=== PATIENT | female | born 1965 | race Caucasian/White ===

== ENCOUNTER → 2017-07-27 | Outpatient (CLI) | payer OTHER ==
[~2017-07-27] MED LIST: LEVO125T5 PO; LPR25 PO; MULT-506 PO
--- NOTE | 2017-07-27 15:08 | MAMMOGRAPHY REPORT ---
BILATERAL DIGITAL SCREENING MAMMOGRAM TOMOSYNTHESIS WITH CAD: 07/27/2017 CLINICAL HISTORY: Routine screening examination. TECHNIQUE: Breast tomosynthesis in addition to standard 2D mammography was performed. Current study was also evaluated with a Computer Aided Detection (CAD) system. COMPARISON: Comparison is made to exam dated: 05/17/2016 mammogram - [facility]. BREAST COMPOSITION: There are scattered areas of fibroglandular density in both breasts. FINDINGS: There is a cluster of microcalcifications in the upper outer middle one third of the right breast and another in the upper outer posterior left breast, for which additional spot magnification views are recommended. A questionable area of architectural distortion in the lateral middle one th ird of the right breast, only seen on the CC view (tomosynthesis slice 30/85), for which additional s pot compression tomosynthesis and possible ultrasound are recommended. No other suspicious mass, architectural distortion or cluster of microcalcifications is seen bilatera lly. IMPRESSION: ACR BI-RADS CATEGORY 0: INCOMPLETE EVALUATION: NEED ADDITIONAL IMAGING EVALUATION The bilateral clusters of microcalcifications and possible area of architectural distortion in the la teral right breast need additional imaging evaluation. The patient will be called to schedule an appointment. Approximately 10% of breast cancers are not detected with mammography. A negative mammographic report should not delay biopsy if a clinically suggestive mass is present. Taniya Stewart M.D. ay/:07/27/2017 12:51:50 Plan Rep: Katelyn TINAJERO(Ethan)(M), [facility] letter sent: Addl Imaging 0 BI-RADS Code: ACR BI-RADS Category 0: Incomplete Evaluation: Need Additional Imaging Evaluation
== END | disposition home or self-care (01) ==
LOC: C.MAMM 12:23
PROVIDERS: ATTEND Family Medicine
DX: Z12.31 Encounter for screening mammogram for malignant neoplasm of breast (principal); R92.0 Mammographic microcalcification found on diagnostic imaging of breast

== ENCOUNTER → 2017-08-02 | Outpatient (CLI) | payer OTHER ==
--- NOTE | 2017-08-02 14:37 | MAMMOGRAPHY REPORT ---
BILATERAL DIGITAL DIAGNOSTIC MAMMOGRAM TOMOSYNTHESIS AND TARGETED BILATERAL ULTRASOUND: 08/02/2017 CLINICAL HISTORY: 52-year-old woman called back from screening mammography for bilateral microcalcifi cations and possible architectural distortion in the lateral right breast. Patient has a family hist ory of breast cancer = grandmother. During this diagnostic appointment she also reported change in a ppearance of her left nipple, which is now more flat and retracted than previous. TECHNIQUE: Spot magnification CC and ML views of each breast; spot compression tomosynthesis right C C and MLO views were obtained. COMPARISON: Comparison is made to exams dated: 07/27/2017 mammogram, 05/17/2016 mammogram - [facility], and 07/20/2007. BREAST COMPOSITION: There are scattered areas of fibroglandular density in both breasts. FINDINGS: The spot compression tomosynthesis views of the right breast demonstrate a small area of a rchitectural distortion in the anterior superior breast, best seen on the spot compression MLO view, measuring 7 mm (MLO tomosynthesis slice 32/86). This small area of distortion is less conspicuous on the spot compression CC view, although it correlates with the location of the questionable area of d istortion seen on the field right CC projection. This could represent a small radial scar, fibrocyst ic change or carcinoma. Further characterization with ultrasound was performed. Spot magnification views of the right breast demonstrate a 2.7 mm grouping of round and punctate micr ocalcifications in the upper outer middle one third of the right breast. No associated mass, asymmet ry or architectural distortion. When comparing back to the prior available mammograms from 2016, the se microcalcifications appear increased in number and are therefore indeterminate. Definitive charac terization with a stereotactic biopsy is recommended. Spot magnification views of the left breast demonstrate 2-3 loosely grouped punctate microcalcificati ons in the superior posterior breast on the spot magnification ML view, less conspicuous on the spot magnification CC view despite repositioning and 2 additional attempts. Given the conspicuous nature of a grouping of microcalcifications on the full field CC projection from the 07/27/2017 screening ma mmogram, a short interval follow-up left diagnostic mammogram including spot magnification views is r ecommended to ensure stability in 6 months, pending benign pathology results from the right breast. Targeted ultrasound was performed in the right superior breast, upper inner and upper outer quadrants . Sonographically normal tissue is seen throughout the majority of the right superior breast. There is a small anechoic cyst versus focal duct ectasia in the 9:00 right breast, 1 cm from the nipple, m easuring 4.3 x 3.8 mm, not likely correlating with the mammographic distortion. The area of distorti on remains indeterminate and definitive characterization with a stereotactic tomosynthesis guided bio psy is recommended. Targeted ultrasound was also performed in the periareolar and subareolar left breast, in the area of possible nipple retraction described by the patient. There is a lobulated predominantly anechoic joselin ign-appearing cyst in the 12:00 periareolar/retroareolar left breast, measuring 4.3 x 4.0 x 3.2 mm. This benign cyst is not likely a cause of nipple retraction. No other suspicious solid mass is seen to cause this symptom. Therefore, continued clinical monitoring is recommended. IMPRESSION: ACR BI-RADS CATEGORY 4: SUSPICIOUS, TARGETED ULTRASOUND ACR BI-RADS CATEGORY 4: SUSPICIO US 1. Stereotactic tomosynthesis guided biopsy is recommended for a small, 7 mm focal area of platform architect ural distortion in the upper outer anterior right breast, without sonographic correlate identified. As the distortion is visualized in the spot compression MLO positioning, would ideally use this appro ach during the biopsy. 2. 2-D stereotactic guided biopsy is also recommended in the right upper outer middle one third of t he breast for a small grouping of round and punctate microcalcifications measuring 2.7 mm. 3. Pending benign pathology results from the right breast stereotactic biopsies, a short interval fo llow-up left diagnostic mammogram including spot magnification views is recommended to ensure stabili ty of a loose grouping of punctate microcalcifications in the upper outer posterior left breast. 4. The patient reports new nipple flattening and retraction, but no new suspicious mammographic or t argeted sonographic finding was identified to explain this symptom. Therefore, continued clinical fo llow-up is recommended and if the symptom progresses, consider consultation with a breast surgeon. These results and recommendations were discussed with the patient at the time of the exam. She tenta tively scheduled the right breast biopsies prior to leaving our department. Approximately 10% of breast cancers are not detected with mammography. A negative mammographic report should not delay biopsy if a clinically suggestive mass is present. Taniya Stewart M.D. ay/:08/02/2017 12:34:56 Foreign Collection Clerk: Ksenia TINAJERO(R)(M), [facility] letter sent: Abnormal 4/5 BI-RADS Code: ACR BI-RADS Category 4: Suspicious Ultrasound BI-RADS: ACR BI-RADS Category 4: Suspici ous
== END | disposition home or self-care (01) ==
LOC: C.MAMM 11:06
PROVIDERS: ATTEND Family Medicine
DX: N64.89 Other specified disorders of breast (principal); R92.0 Mammographic microcalcification found on diagnostic imaging of breast

== ENCOUNTER → 2017-08-18 | Outpatient (CLI) | payer OTHER ==
[2017-08-18 10:31] LABS: BASO % 0.3 %; BASO ABS # 0.03 K/uL (0-0.2); EOS % 1.5 %; EOS ABS # 0.13 K/uL (0-0.5); HEMATOCRIT 39.4 % (37-47); HEMOGLOBIN 13.5 g/dL (12.0-16.0); IG# 0.04 K/uL (0.00-0.02); LYMPH % 28.7 %; LYMPH ABS # 2.53 K/uL (1.2-3.4); MEAN CORPUSCULAR HEMOGLOBIN 29.5 pg (25-34); MEAN CORPUSCULAR HGB CONC 34.3 g/dl (32-36); MEAN PLATELET VOLUME 9.7 fL (7.4-10.4); MONO % 6.3 %; MONO ABS # 0.56 K/uL (0.11-0.59); NEUT % 62.7 %; NEUT ABS # 5.53 K/uL (1.4-6.5); PLATELET COUNT 245 K/uL (130-400); RED CELL DISTRIBUTION WIDTH CV 13.6 % (11.5-14.5); RED CELL DISTRIBUTION WIDTH SD 42.7 fL (36.4-46.3); WHITE BLOOD COUNT 8.82 K/uL (4.8-10.8)
[2017-08-18 11:18] LABS: ALBUMIN 3.9 gm/dl (3.4-5.0); ALT/SGPT 25 U/L (12-78); AST/SGOT 15 U/L (15-37); BLOOD UREA NITROGEN 12 mg/dl (7-18); CALCIUM 9.1 mg/dl (8.5-10.1); CARBON DIOXIDE 28 mmol/L (21-32); CHOLESTEROL 162 mg/dl (0-200); GLUCOSE 86 mg/dl (70-99); POTASSIUM 3.9 mmol/L (3.5-5.1); SODIUM 139 mmol/L (136-145)
[2017-08-18 11:29] LABS: ALKALINE PHOSPHATASE 76 U/L (45-117); LDL CHOLESTEROL CALCULATED 78 mg/dl; TOTAL PROTEIN 7.5 gm/dl (6.4-8.2)
== END | disposition home or self-care (01) ==
LOC: C.LAB 10:02
PROVIDERS: ATTEND Neuromusculoskeletal Medicine & OMM
DX: Z00.00 Encounter for general adult medical examination without abnormal findings (principal); I47.1 Supraventricular tachycardia; E03.9 Hypothyroidism, unspecified

== ENCOUNTER → 2017-08-19 | Outpatient (CLI) | payer OTHER ==
--- NOTE | 2017-08-19 13:38 | Discharge Instructions ---
Discharge Instructions Procedure Procedure Date: Aug 19, 2017. Reason for visit: Right Calcifications/Distortion. Discharge Discharge Date: Aug 19, 2017. Discharge Diagnosis: status post breast biopsy Instructions Activity Recommendations: Additional Limitations (see below) Return to School/Work: no limitations Recommended Home Diet: No Limitations Provider Instructions: ACTIVITY RECOMMENDATIONS: * No lifting, pushing, pulling or exercising the affected side for three days. RETURN TO SCHOOL/WORK: * You may return to work/school after the procedure, but do not perform any strenuous activities for 24 to 48 hours. MEDICATIONS: * Tylenol (two 325 mg) every four to six hours if needed for mild pain (if not allergic to Tylenol). DIET: * Resume previous diet. SPECIAL CARE INSTRUCTIONS: * Keep biopsy site dry for 24 hours. May shower after 24 hours, but do not soak (bathe) incision. * May remove Tegaderm (plastic patch) tomorrow AFTER showering. * Leave the steri-strips on for one week. Allow the steri-strips to fall off by themselves. If not off after one week, you may remove them. You may place a Bandaid crosswise over the strips, if desired. * Apply ice 10 minutes on and 10 minutes off as needed. * Wear a bra at bedtime to sleep more comfortably for 2-3 days. * Your referring physician should have the results after approximately 5 to 7 business days. * Call for unusual bleeding, fever, drainage, etc or if you have any questions call during normal business hours or after hours call Dr Unger, [phone]. FOLLOW UP VISIT: Follow-up with Referring Physician as scheduled. Allergies Coded Allergies: No Known Allergies (Unverified , 05/28/14) Ken Perez Recommendations: Call your doctor if: * Temperature above 101 degrees * Pain not relieved by pain medicine ordered * There is increased drainage or redness from any incision * You have any unanswered questions or concerns. Your Doctors Instructions noted above were prepared by provider Jacinta Unger. Patient Signature Section: Patient Instructions Signature Page Alyson Ferguson Patient (or Guardian) Signature/Date: I have read and understand the instructions given to me by my caregivers. Caregiver/RN/Doctor Signature/Date: The above-named patient and/or guardian has received patient instructions on this date. + Original Patient Signature Page (only) stays with chart. Please make copy for patient.
--- NOTE | 2017-08-19 15:25 | MAMMOGRAPHY REPORT ---
STEREOTACTIC GUIDED BIOPSY RIGHT BREAST: 08/19/2017 CLINICAL HISTORY: Indeterminate calcifications in the right upper outer quadrant. PATIENT CONSENT: The procedure, risks, benefits, and alternatives of stereotactic biopsy with clip pl acement were discussed with the patient, and verbal and written consent was obtained. A timeout was performed immediately prior to the procedure. PROCEDURE DESCRIPTION: With tomosynthesis stereotactic guidance, aseptic technique, and lidocaine as a local anesthetic (1% lidocaine to anesthetize the skin and 1% lidocaine with epinephrine to anesthe tize the deeper tissues), the calcifications of concern in the right upper outer quadrant were sample d multiple times with a 9-gauge vacuum-assisted biopsy needle (Pixable). The path of approach wa s lateral. The specimen radiograph demonstrates calcifications to be present in the samples. A meta llic marker clip (T-shaped) was placed at the biopsy site. This was confirmed on postprocedure mammo grams. Direct pressure was applied at the biopsy site and hemostasis was readily achieved. The bronson ent tolerated the procedure without complication. She was given wound care instructions. COMPARISON: Comparison is made to exams dated: 08/19/2017 stereotactic biopsy, 08/02/2017 mammogram, ultrasound, 07/27/2017 mammogram, and 05/17/2016 mammogram - [facility]. IMPRESSION: STEREOTACTIC GUIDED BIOPSY Stereotactic biopsy of indeterminate calcifications in the right upper outer quadrant, with clip plac ement. The patient will receive pathology results from her referring provider. Jacinta Unger M.D. ah/:08/19/2017 13:40:43 Attending Technologist: Jeannine Vera RT(R)(M), [facility] Applied Marine Physics Professor: Ksenia Hewitt RT(R)(M), [facility]
--- NOTE | 2017-08-19 15:25 | MAMMOGRAPHY REPORT ---
STEREOTACTIC GUIDED BIOPSY RIGHT BREAST: 08/19/2017 CLINICAL HISTORY: Focal architectural distortion in the right upper outer quadrant. PATIENT CONSENT: The procedure, risks, benefits, and alternatives of stereotactic biopsy with clip pl acement were discussed with the patient, and verbal and written consent was obtained. A timeout was performed immediately prior to the procedure. PROCEDURE DESCRIPTION: With tomosynthesis stereotactic guidance, aseptic technique, and lidocaine as a local anesthetic (1% lidocaine to anesthetize the skin and 1% lidocaine with epinephrine to anesthe tize the deeper tissues), the focal architectural distortion in the right upper outer quadrant was sa mpled multiple times with a 9-gauge vacuum-assisted biopsy needle ([employer]). The path of approac h was lateral. A metallic marker clip (dumbbell-shaped) was placed at the biopsy site. This was con firmed on postprocedure mammograms. Direct pressure was applied at the biopsy site and hemostasis wa s readily achieved. The patient tolerated the procedure without complication. She was given wound c are instructions. COMPARISON: Comparison is made to exams dated: 08/02/2017 mammogram, 08/02/2017 ultrasound, 07/27/2017 mammogram, 05/17/2016 mammogram - [facility], and 07/20/2007. IMPRESSION: STEREOTACTIC GUIDED BIOPSY Stereotactic biopsy of focal architectural distortion in the right upper outer quadrant, with clip pl acement. The patient will receive pathology results from her referring provider. Jacinta Unger M.D. ah/:08/19/2017 13:39:47 Attending Technologist: Jeannine Vera RT(R)(M), [facility] Shop Girl: Ksenia Hewitt RT(R)(M), [facility]
--- NOTE | 2017-08-19 15:28 | MAMMOGRAPHY REPORT ---
UNILATERAL RIGHT DIGITAL DIAGNOSTIC MAMMOGRAM TOMOSYNTHESIS: 08/19/2017 CLINICAL HISTORY: Status post stereotactic biopsy 2. TECHNIQUE: Breast tomosynthesis in addition to standard 2D mammography was performed. Postprocedura l right CC and ML 2-D and tomosynthesis images were obtained. COMPARISON: Comparison is made to exams dated: 08/19/2017 stereotactic biopsy, 08/02/2017 mammogram, ultrasound, 07/27/2017 mammogram, and 05/17/2016 mammogram - [facility]. BREAST COMPOSITION: There are scattered areas of fibroglandular density in the right breast. FINDINGS: A new dumbbell-shaped biopsy marker clip is seen at the site of the biopsied architectural distortion in the right upper outer quadrant. Another T-shaped biopsy marker clip is seen at the si te of the biopsied calcifications in the right upper outer quadrant. No significant postbiopsy hemat ronit is seen. IMPRESSION: POST PROCEDURE IMAGING FOR MARKER PLACEMENT New biopsy marker clips status post right breast stereotactic biopsy 2.. Pathology results are pend ing. Approximately 10% of breast cancers are not detected with mammography. A negative mammographic report should not delay biopsy if a clinically suggestive mass is present. Jacinta Unger M.D. ah/:08/19/2017 13:59:43 Attending Technologist: Jeannine Vera RT(R)(M), [facility] Kiln Loader: Ksenia Hewitt RT(R)(M), [facility] BI-RADS Code: Post Procedure Imaging For Marker Placement
== END | disposition home or self-care (01) ==
LOC: C.MAMM 12:26
PROVIDERS: ATTEND Family Medicine
DX: R92.1 Mammographic calcification found on diagnostic imaging of breast (principal); N64.9 Disorder of breast, unspecified

== ENCOUNTER → 2017-10-05 | Outpatient (CLI) | payer OTHER ==
--- NOTE | 2017-10-05 15:37 | DIAGNOSTIC IMAGING REPORT ---
SOFT TISS HEAD/NECK-THYROID HISTORY: Adenopathy E03.9 Hypothyroidism COMPARISON: 05/14/2016 FINDINGS: Right lobe: Surgically absent. Left lobe: Uniform in overall echotexture. Maximum dimension 4.9 cm. 5 mm nodule mid pole unchanged. Isthmus: No nodules. Soft tissues: Several small benign-appearing nodes in the cervical regions bilaterally essentially unchanged. Fatty hilum are present throughout. There is no evidence for new or interval process. IMPRESSION: 1. Surgically absent right thyroid lobe. 2. 5 mm nodule mid left pole unchanged. 3. Several small benign cervical nodes unchanged from the prior study. The above report was generated using voice recognition software. It may contain grammatical, syntax or spelling errors. Electronically signed by: Robel Rubio M.D. 10/05/2017 3:36 PM Dictated Date/Time: 10/05/2017 3:34 PM
== END | disposition home or self-care (01) ==
LOC: C.ULTR 15:07
PROVIDERS: ATTEND Neuromusculoskeletal Medicine & OMM
DX: E89.0 Postprocedural hypothyroidism (principal); E04.1 Nontoxic single thyroid nodule

== ENCOUNTER → 2018-02-07 | Outpatient (CLI) | payer OTHER ==
--- NOTE | 2018-02-07 15:21 | MAMMOGRAPHY REPORT ---
BILATERAL DIGITAL DIAGNOSTIC MAMMOGRAM TOMOSYNTHESIS WITH CAD: 02/07/2018 CLINICAL HISTORY: 52-year-old woman presents for diagnostic follow-up in both breasts, to reassess bi opsy sites in the right upper outer quadrant which yielded benign pathology results, and also to reas sess a small grouping of 3 punctate microcalcifications in the retroareolar versus upper outer left b reast. TECHNIQUE: Bilateral CC and MLO 2D and tomosynthesis images, spot magnification left CC and ML views were obtained. Current study was also evaluated with a Computer Aided Detection (CAD) system. COMPARISON: Comparison is made to exams dated: 08/19/2017 mammogram, 08/02/2017 mammogram, 07/27/2017 ma mmogram, 05/17/2016 mammogram, and 08/02/2017 ultrasound - [facility]. BREAST COMPOSITION: There are scattered areas of fibroglandular density in both breasts. FINDINGS: There are 2 stable metallic biopsy marker clips in the upper outer middle one third of the right breast, at the sites of prior benign stereotactic biopsies. No new calcifications or increasin gly prominent architectural distortion is seen in the right upper outer breast at the site of prior b iopsy. No other new suspicious findings are identified in the right breast. The glandular pattern of the left breast is similar to prior mammograms. Again noted is a small loos e grouping of approximately 3 punctate microcalcifications in the upper outer posterior breast, that are stable dating back to July 2017, most likely benign fibrocystic change. However, another six- month follow-up left diagnostic mammogram including spot magnification views is recommended to ensure longer stability. At the time of next follow-up in the left breast repeat tomosynthesis images are again recommended in the right breast. IMPRESSION: ACR-BI-RADS CATEGORY 3: PROBABLY BENIGN 1. Stable postbiopsy changes in the right upper outer quadrant, without evidence of new calcificatio ns or increasingly prominent architectural distortion. Another six-month follow-up right diagnostic tomosynthesis mammogram and possible ultrasound is recommended to ensure longer stability. 2. Stable small loose grouping of approximately 3 punctate micro calcifications in the upper outer p osterior left breast, for which another six-month follow-up diagnostic mammogram including spot magni fication views is recommended to ensure longer stability. These results and recommendations were discussed with the patient at the time of the exam. She tenta tively scheduled the follow-up appointment prior to leaving our department. Some breast cancers are not detected with mammography. A negative mammographic report should not miryam y biopsy if a clinically suggestive mass is present. Taniya Stewart M.D. ay/:02/07/2018 12:03:16 Check Cashier: RT Fareed(R)(M), [facility] letter sent: Follow Up Recommended 3 BI-RADS Code: ACR-BI-RADS Category 3: Probably Benign
== END | disposition home or self-care (01) ==
LOC: C.MAMM 10:50
PROVIDERS: ATTEND Neuromusculoskeletal Medicine & OMM
DX: R92.0 Mammographic microcalcification found on diagnostic imaging of breast (principal); Z98.890 Other specified postprocedural states

== ENCOUNTER → 2018-02-07 | Outpatient (CLI) | payer OTHER ==
[2018-02-07 13:27] LABS: BASO % 0.3 %; BASO ABS # 0.02 K/uL (0-0.2); EOS ABS # 0.15 K/uL (0-0.5); HEMATOCRIT 42.2 % (37-47); HEMOGLOBIN 14.2 g/dL (12.0-16.0); IG# 0.02 K/uL (0.00-0.02); LYMPH % 30.7 %; LYMPH ABS # 2.31 K/uL (1.2-3.4); MEAN CELL VOLUME 84.7 fL (80-100); MEAN CORPUSCULAR HEMOGLOBIN 28.5 pg (25-34); MEAN CORPUSCULAR HGB CONC 33.6 g/dl (32-36); MEAN PLATELET VOLUME 10.4 fL (7.4-10.4); MONO % 5.3 %; NEUT % 61.4 %; NEUT ABS # 4.62 K/uL (1.4-6.5); PLATELET COUNT 257 K/uL (130-400); RED CELL DISTRIBUTION WIDTH CV 13.3 % (11.5-14.5); RED CELL DISTRIBUTION WIDTH SD 40.6 fL (36.4-46.3); WHITE BLOOD COUNT 7.52 K/uL (4.8-10.8)
[2018-02-07 14:09] LABS: ALBUMIN 3.9 gm/dl (3.4-5.0); ALKALINE PHOSPHATASE 81 U/L (45-117); ALT/SGPT 20 U/L (12-78); AST/SGOT 10 U/L (15-37); BLOOD UREA NITROGEN 12 mg/dl (7-18); CALCIUM 9.1 mg/dl (8.5-10.1); CARBON DIOXIDE 26 mmol/L (21-32); CHOLESTEROL 141 mg/dl (0-200); CREATININE 0.71 mg/dl (0.60-1.20); GLUCOSE 76 mg/dl (70-99); LDL CHOLESTEROL CALCULATED 73 mg/dl; LIPASE 152 U/L (73-393); POTASSIUM 3.8 mmol/L (3.5-5.1); SODIUM 138 mmol/L (136-145); TOTAL PROTEIN 7.6 gm/dl (6.4-8.2)
== END | disposition home or self-care (01) ==
LOC: C.LAB 12:05
PROVIDERS: ATTEND Nurse Practitioner Family
DX: K62.5 Hemorrhage of anus and rectum (principal); R10.9 Unspecified abdominal pain; E78.1 Pure hyperglyceridemia; R42 Dizziness and giddiness

== ENCOUNTER → 2018-02-08 | Outpatient (CLI) | payer OTHER | END | disposition home or self-care (01) | LOC: C.LABSPEC 07:21 | PROVIDERS: ATTEND Nurse Practitioner Family | DX: R19.7 Diarrhea, unspecified (principal) ==

== ENCOUNTER → 2018-02-09 | Outpatient (CLI) | payer OTHER ==
[~2018-02-09] MED LIST changes: +OPTIRAY 320 IV PRN
--- NOTE | 2018-02-09 10:05 | DIAGNOSTIC IMAGING REPORT ---
ABDOMEN AND PELVIS CT WITH IV AND ORAL CONTRAST CT DOSE: 651.29 mGycm HISTORY: Generalized ABDOMINAL PAIN, DIARRHEA, RECTAL BLEEDING TECHNIQUE: Multiaxial CT images of the abdomen and pelvis were performed following the use of intravenous and oral contrast. A dose lowering technique was utilized adhering to the principles of ALARA. COMPARISON STUDY: Abdomen and pelvis CT 09/23/2015. FINDINGS: The lung bases are clear. No pneumoperitoneum. No pneumatosis. Cholecystectomy. No hepatic or splenic masses. Slight prominence of the central intrahepatic bile ducts, unchanged. This is likely due to the patient's postcholecystectomy state. The pancreas, spleen, and adrenal glands are unremarkable. A 3 mm hypodense lesion within the lower pole the right kidney. This is too small to characterize. Normal left kidney. No hydronephrosis. No retroperitoneal lymphadenopathy. The bladder is unremarkable. The uterus is surgically absent. No bowel wall thickening or obstruction. Normal appendix. IMPRESSION: 1. No bowel wall thickening or obstruction. 2. Normal appendix. 3. Cholecystectomy. 4. Hysterectomy. Electronically signed by: Abraham Mann M.D. 02/09/2018 10:03 AM Dictated Date/Time: 02/09/2018 9:51 AM
== END | disposition home or self-care (01) ==
LOC: C.CTS 08:41
PROVIDERS: ATTEND Nurse Practitioner Family
DX: R10.9 Unspecified abdominal pain (principal); R19.7 Diarrhea, unspecified; K62.5 Hemorrhage of anus and rectum

== ENCOUNTER 2025-01-18 22:51 | Observation (INO) ==
[2025-01-18] MEDS: FAMOTIDINE 20MG IV PUSH 20 MG/5 ML SYR IV STA (23:28)
[2025-01-18] MEDS: SODIUM CHLORIDE 0.9% 500 ML IV SCH (23:28)
--- NOTE | 2025-01-18 23:36 | Emergency Department Note ---
Impression & Plan Chest pain, Esophageal spasm, Dyspnea ED Provider Note ED Provider Note NAME: CHAUNCEY WHITEHEAD AGE:59 SEX: Female : 1965 ARRIVES VIA: private vehicle INFORMANT: Patient ED PROVIDER(s): Marcela Garcia DO CHIEF COMPLAINT: Chest pain, painful swallowing, difficulty breathing HPI: This is a 59-year-old female who presents due to concern for persistent chest pain, painful swallowing and difficulty swallowing, and accompanying trouble breathing. Patient states beginning the week she had fevers and enlarged lymph nodes and was diagnosed with strep throat. She states the chest pain is across her chest and around into her back at the same level. She has been dealing with difficulty swallowing over several recent weeks and did have esophageal stenosis that required EGD with dilation back in the fall. She has been taking pantoprazole however [facility]. She was seen here the beginning of the week, and was told to increase the pantoprazole. She has previously tried Carafate however stated she did not feel well when taking it. She states she has pain no matter what she eats. She states she has to sit upright to try and sleep because laying flat makes the pain worse and makes it feel as though she cannot breathe. She states her pills are getting stuck daily when she tries to swallow them. She states she feels a sense of her own saliva pooling in her esophagus and occasionally it makes her nauseous as though she wants to vomit. She was started on penicillin for the positive strep throat at the beginning of the week and states her fevers are decreasing, the highest today was 100.1, and her swollen lymph nodes have improved. No change in her chest pain and back pain. Patient was concerned for additional etiology given she is a diabetic. Patient concerned that the symptoms are making her delirious as she feels very anxious and the lack of sleep is making her feel worse. PAST MEDICAL HISTORY:See Below PAST SURGICAL HISTORY:See Below FAMILY HISTORY:See Below SOCIAL HISTORY:See Below HOME MEDICATIONS:See Below ALLERGIES:See Below VITALS:See Below PHYSICAL EXAMINATION: GENERAL: alert, well appearing, well nourished, no distress, non-toxic EYE EXAM: normal conjunctiva, PERRL and EOM's grossly intact OROPHARYNX: no exudate, no erythema, lips, buccal mucosa, and tongue normal and mucous membranes are moist NECK: supple, no nuchal rigidity, no adenopathy, non-tender, FROM LUNGS: Clear to auscultation. Normal chest wall mechanics, no w/r/r HEART: no murmurs, S1 normal and S2 normal, pain with palpation across the chest ABDOMEN: abdomen soft, non-tender, normo-active bowel sounds, no masses, no rebound or guarding. BACK: Back is symmetrical on inspection and there is no deformity, no midline tenderness, no CVA tenderness. SKIN: no rashes, petechiae, orbruising UPPER EXTREMITIES: upper extremities are grossly normal. FROM, nml pulses b/l. LOWER EXTREMITIES: No pitting edema. FROM, nml pulses b/l. NEURO EXAM: Normal sensorium, cranial nerves II-XII grossly intact, normal speech, no facial droop,nogross weakness of arms, no gross weakness of legs. Gross sensation intact. No ataxia. Vital Signs: reviewed and remarkable Differential Diagnosis: acute coronary syndrome, pericarditis, pulmonary embolus, aortic dissection, pneumonia, pneumothorax, musculoskeletal pain, shingles, GERD, GI bleed, as well as others were considered MEDICAL DECISION MAKING: This a 59-year-old female presents emergency department due to concern for persistent chest pain, dyspnea, back pain, and odynophagia. She was afebrile hemodynamically stable. Labs drawn and sent, IV established, EKG and chest were performed at bedside interpreted by me and patient monitored on telemetry. After review of prior GI findings as well as recent ED visit for chest pain and follow-up with GI in the office, we discussed differential diagnosis. Patient given IV famotidine, IV Tylenol and IV pantoprazole here. No ectopy or dysrhythmia noted. All labs are reassuring, she was noted to now have a leukocytosis. I suspect this is a combination of recent strep infection as well as stress demargination. In consideration for the differential we discussed additional CT imaging. Patient sent for CT angiography of the chest. She also requested CT of the head given recent confusion and concern for delirium. CT head and chest were reassuring. I discussed with her the recommendations of on- call GI. Patient concerned due to persistent difficult and painful swallowing including taking her medications and given the EGD is so far away she is not certain if she will be able to manage at home for that long of time. I do not feel this is unreasonable given her worsening symptoms and prior history. Patient uncomfortable going home. Case discussed with the hospitalist team for further evaluation. Consultation(s): 0109: Discussed with Dr. Moya via [place] text. Recommends addition of famotidine and asking the patient to call her GI team to try and get an earlier appointment. 0345: Discussed with Dr. Espinal, [facility] hospitalist team, for additional evaluation and mgmt. ER Treatment Provided: See below Diagnostics Interpreted By Me: -ECG: Normal sinus 67, normal axis, normal intervals, no acute ST/T wave changes -Cardiac Monitoring: An order was placed for continuous cardiac monitoring. The monitor shows a rate of 78 with normal sinus rhythm. -Laboratory studies: As stated above and show below. -Imaging studies: X-ray Chest: A single view study of the chest was reviewed and was negative for cardiomegaly, focal infiltrate, effusion, pulmonary edema, or wide mediastinum. Triage Nursing Note Reviewed Prior/Outside Records Reviewed Past Med/Surg History Problem List Dyspnea (Acute) Esophageal spasm (Acute) Chest pain (Acute) Esophageal stenosis Dysphagia History of esophagogastroduodenoscopy (EGD) (Acute) Chest pain (Acute) GERD (gastroesophageal reflux disease) Colon cancer screening Encounter for pre-operative examination Negative test 04/10/20. Elevated hemoglobin A1c reason for metformin Panic attacks Lumbar radiculopathy PTSD (post-traumatic stress disorder) Grief reaction Supraventricular tachycardia, paroxysmal (Chronic) reason for metoprolol--followed with Dr. 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, still gets sob with exertion History of colitis Hx of renal calculi passed on own Lumbar radiculopathy Hypertriglyceridemia does not take med Diabetes type 2, controlled Hypothyroidism Paroxysmal SVT (supraventricular tachycardia) (2006) reason for taking metoprolol, no longers sees cardio History of panic attacks better recently PTSD (post-traumatic stress disorder) Rectocele also cystocele, follows urology through [facility] History of stroke (1994) 1994--pt states was d/t severe migraine did follow with neurologist but was cleared--not sure what type of stroke - has slight weakness on right side, and slight right facial drooping, sally. with lip Hx of duodenal ulcer (2019) Hx of colonic polyps History of kidney stones History of duodenal ulcer Surgical History History of right breast biopsy benign History of bilateral tubal ligation (1990) History of total hysterectomy with bilateral salpingo-oophorectomy (BSO) (1992) History of colonoscopy with polypectomy (2019) History of esophagogastroduodenoscopy (EGD) History of cholecystectomy (2000) History of surgical procedure on mouth dental implant- broke, now has partial flapper - removable- pt. will have day of procedure Had 2 root canal teeth removed History of partial thyroidectomy (1997) on right side History of tonsillectomy and adenoidectomy Family History Aunt Family history of diabetes mellitus Breast cancer Mother Family history of diabetes mellitus Cardiac disorder Myocardial infarction Hypertension Father Prostate cancer Alcohol abuse Cardiac disorder Kidney stone Kidney disease Hypertension Uncle Family history of diabetes mellitus Grandmother (Maternal) Family history of diabetes mellitus Other No family history of adverse response to anesthesia Denies family history of Ovarian cancer Colorectal cancer Social History Smoking Status: Never smoker Second Hand Exposure: No; Do You Dip or Chew Tobacco: No; Hx Alcohol Use: No Hx Substance Use: No Preferred Language: Spanish Communication Ability: Effective Visual Impairment: No Limitations Hearing Ability: Normal 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 How many Children do You have: 2 Feels Safe at Home: Yes Childhood Exposure to Second-Hand Smoke: No Diet: regular Dental Care, Regularly: Yes Physical Activity Frequency: Does not Exercise Seatbelt Use: always Sunscreen Use: Yes Assistive Devices: Glasses and Other Allergies Allergies Allergy/AdvReac Type Severity Reaction Status Date / Time adhesive AdvReac Mild Rash Verified 01/16/25 10:42 metformin AdvReac Mild Difficulty Verified 01/16/25 10:42 Breathing peanut butter Allergy Severe Anaphylaxis Uncoded 01/16/25 10:42 Home Meds Home Medications Medication Instructions Recorded Confirmed cholecalciferol (vitamin D3) 50 1,000 unit PO QAM 08/24/23 01/18/25 mcg (2,000 unit) tablet aspirin 81 mg tablet,delayed 81 mg PO QAM 03/02/24 01/18/25 release estradiol 1 mg tablet 0.5 mg PO QAM 03/02/24 01/18/25 levothyroxine 125 mcg tablet 125 mcg PO QAM 03/02/24 01/18/25 loratadine 10 mg tablet (Claritin) 10 mg PO QAM 03/02/24 01/18/25 metoprolol succinate 50 mg 50 mg PO QAM 03/02/24 01/18/25 tablet,extended release 24 hr hydroxyzine pamoate 25 mg capsule 25 mg PO Q8 PRN Anxiety 01/18/25 01/18/25 lorazepam 1 mg tablet 1 mg PO Q8 PRN Anxiety 01/18/25 01/18/25 nitroglycerin 0.4 mg sublingual 0.4 mg sublingual UD PRN Chest Pain 01/18/25 01/18/25 tablet penicillin V potassium 500 mg 500 mg PO Q6 01/18/25 01/18/25 tablet potassium bicarbonate-citric acid 25 meq PO DAILY 01/18/25 01/18/25 25 mEq effervescent tablet (Effer-K) semaglutide 2 mg/dose (8 mg/3 mL) 2 mg subcut WK 01/18/25 01/18/25 subcutaneous pen injector (Ozempic) sucralfate 1 gram tablet 1 g PO BID 01/18/25 01/18/25 Previous Rx's Medication Instructions Recorded pantoprazole 40 mg tablet,delayed 40 mg PO QAM #30 tabs 01/16/25 release Results & Data (ED) Vital Signs Vital Signs - 24 hr 01/18/25 23:00 01/18/25 23:00 01/18/25 23:00 Temperature 36.4 C L Temperature Source Temporal Artery Scan Pulse Rate 73 76 Pulse Rate from SpO2 Sensor Pulse Rhythm Regular Respiratory Rate 22 18 Respiratory Effort / Characteristics Non-Labored Spontaneous Respiratory Depth Normal Blood Pressure 132/83 Blood Pressure Mean 99 Pulse Oximetry 99 100 100 Oxygen Delivery Method Room Air Room Air Room Air Oxygen Flow Rate 0 Sepsis Recent Fever Within 48 Hours No Sepsis New/Unexplained Change in Mental Status No Sepsis Action Taken by Nursing No Action Required 01/18/25 23:10 01/18/25 23:30 01/19/25 00:12 Temperature Temperature Source Pulse Rate 78 70 77 Pulse Rate from SpO2 Sensor 74 77 Pulse Rhythm Respiratory Rate 22 23 Respiratory Effort / Characteristics Respiratory Depth Blood Pressure 154/93 H 151/91 H Blood Pressure Mean 113 111 Pulse Oximetry 100 100 Oxygen Delivery Method Room Air Room Air Oxygen Flow Rate Sepsis Recent Fever Within 48 Hours Sepsis New/Unexplained Change in Mental Status Sepsis Action Taken by Nursing 01/19/25 00:30 01/19/25 02:06 01/19/25 02:30 Temperature Temperature Source Pulse Rate 73 67 75 Pulse Rate from SpO2 Sensor 72 65 75 Pulse Rhythm Respiratory Rate 22 18 14 Respiratory Effort / Characteristics Respiratory Depth Blood Pressure 147/94 H 140/69 130/80 Blood Pressure Mean 111 92 96 Pulse Oximetry 98 96 97 Oxygen Delivery Method Room Air Room Air Room Air Oxygen Flow Rate Sepsis Recent Fever Within 48 Hours Sepsis New/Unexplained Change in Mental Status Sepsis Action Taken by Nursing 01/19/25 03:00 01/19/25 03:07 01/19/25 03:33 Temperature Temperature Source Pulse Rate 65 64 64 Pulse Rate from SpO2 Sensor 62 64 Pulse Rhythm Respiratory Rate 16 15 Respiratory Effort / Characteristics Respiratory Depth Blood Pressure 125/63 140/77 Blood Pressure Mean 83 98 Pulse Oximetry 99 97 Oxygen Delivery Method Room Air Room Air Oxygen Flow Rate Sepsis Recent Fever Within 48 Hours Sepsis New/Unexplained Change in Mental Status Sepsis Action Taken by Nursing Laboratory Data 01/18/25 23:30 01/18/25 23:30 Lab Results 01/18/25 01/18/25 Range/Units 23:30 23:31 WBC 16.23 H (4.8-10.8) K/ul RBC 4.81 (4.20-5.40) M/uL Hgb 14.0 (12.0-16.0) g/dl Hct 41.2 (37.0-47.0) % MCV 85.7 (80.0-100.0) fL MCH 29.1 (25.0-34.0) pg MCHC 34.0 (32.0-36.0) g/dL RDW Std Deviation 38.7 (36.4-46.3) fL RDW Coeff of Breana 12.5 (11.5-14.5) % Plt Count 343 (130-400) K/uL MPV 9.7 (9.4-12.4) fL Immature Gran % (Auto) 0.3 % Neut % (Auto) 70.2 % Lymph % (Auto) 22.4 % [place] % (Auto) 6.3 % Eos % (Auto) 0.4 % Baso % (Auto) 0.4 % Neut # (Auto) 11.40 H (1.40-6.50) K/uL Lymph # (Auto) 3.63 H (1.20-3.40) K/uL [place] # (Auto) 1.02 H (0.11-0.59) K/uL Eos # (Auto) 0.06 (0.00-0.50) K/uL Baso # (Auto) 0.07 (0.00-0.20) K/uL Immature Gran # (Auto) 0.05 (0.01-0.20) K/uL D-Dimer < 190 (0-500) ug/L FEU Sodium 140 (136-145) mmol/L Potassium 3.6 (3.5-5.1) mmol/L Chloride 104 (98-107) mmol/L Carbon Dioxide 28 (21-32) mmol/L Anion Gap 8 (3-11) BUN 8 (6-23) mg/dl Creatinine 0.83 (0.6-1.2) mg/dl Est Cr Clr Drug Dosing 75.6 ml/min eGFR 82.17 BUN/Creatinine Ratio 9.6 L (10-20) Glucose 81 (70-99(Fasting)) mg/dl Calcium 9.1 (8.6-10.3) mg/dl Total Bilirubin 0.6 (0.2-1.0) mg/dl AST 18 (13-39) U/L ALT 12 (7-52) U/L Alkaline Phosphatase 51 (34-104) U/L Troponin I High Sens 2.5 (0-14) pg/ml Total Protein 8.2 (6.0-8.3) gm/dl Albumin 4.3 (3.4-5.0) gm/dl Globulin 3.9 (2.5-4.0) gm/dl Albumin/Globulin Ratio 1.1 (0.9-2) Lipase 32 (11-82) U/L Procalcitonin < 0.02 (0-0.5) ng/ml Adenovirus (PCR) Not Detected (NotDetected) B. pertussis DNA (PCR) Not Detected (NotDetected) B.parapertussis DNA PCR Not Detected (NotDetected) C. pneumoniae DNA (PCR) Not Detected (NotDetected) Coronavirus OC43 (PCR) Not Detected (NotDetected) Coronavirus HKU1 (PCR) Not Detected (NotDetected) Coronavirus 229E (PCR) Not Detected (NotDetected) SARS-CoV-2 (PCR) Not Detected (NotDetected) Coronavirus NL63 (PCR) Not Detected (NotDetected) Human Metapneumovir PCR Not Detected (NotDetected) Influenza Type A (PCR) Not Detected (NotDetected) Influenza Type B (PCR) Not Detected (NotDetected) M. pneumoniae (PCR) Not Detected (NotDetected) Parainfluenza 1 (PCR) Not Detected (NotDetected) Parainfluenza 2 (PCR) Not Detected (NotDetected) Parainfluenza 3 (PCR) Not Detected (NotDetected) Parainfluenza 4 (PCR) Not Detected (NotDetected) RSV (PCR) Not Detected (NotDetected) Entero/Rhino (PCR) Not Detected (NotDetected) Administered Medications Discontinued Medications Famotidine (Pepcid 20mg Iv Push) 20 mg in 5 mls @ 2.5 mls/min IV NOW STA Stop: 01/18/25 23:16 Last Admin: 01/18/25 23:28 Dose: 2.5 mls/min Documented By: BENJAMÍN Sodium Chloride (Nss) 500 mls @ 125 mls/hr IV .Q4H JIMMIE Stop: 01/19/25 03:14 Last Infusion: 01/19/25 03:40 Dose: Infused Documented By: Admin: 01/18/25 23:28 Dose: 125 mls/hr Documented By: BENJAMÍN Pantoprazole Sodium (Protonix) 40 mg in 10 mls @ 5 mls/min IV NOW ONE Stop: 01/18/25 23:31 Last Admin: 01/18/25 23:37 Dose: 5 mls/min Documented By: BENJAMÍN Ioversol (Optiray 320 125ml) 118 ml IV ONCE ONE Stop: 01/19/25 01:39 Last Admin: 01/19/25 01:38 Dose: 118 ml Documented By: KARL Imaging Data Radiologist's Impression: Chest X-Ray 01/18/25 23:04 Exam(s): XR CXR 1 VIEW EXAM: XR Chest, 1 View CLINICAL HISTORY: Reason for exam: Chest pain, nonspecific. TECHNIQUE: Frontal view of the chest. COMPARISON: Prior chest x-ray from January 13, 2025. FINDINGS: Lungs: Mild to moderate peribronchial thickening of the central and lower lobe bronchi with increased interstitial opacities in the lower lobes. No consolidation. Pleural space: Unremarkable. No pneumothorax. Heart: Unremarkable. No cardiomegaly. Mediastinum: Unremarkable. Normal mediastinal contour. Bones/joints: Unremarkable. No acute fracture. IMPRESSION: Bronchitis, which may be infectious or inflammatory etiologies. No consolidation or pleural effusion. Electronically signed by: Alesia Cha MD 01/19/25 02:41 AM Chest CTA 01/19/25 00:57 EXAM: CT angio chest PE protocol CLINICAL HISTORY: PE, CP, hx esophageal stricture, recent strep. TECHNIQUE: CT angiography of the chest was performed with intravenous contrast with the following protocol: axial images with, reconstructed coronal and sagittal images. Intravenous contrast was administered using automated injection techniques. Bolus tracking was employed to optimize arterial phase imaging. One of these 3D techniques was utilized: Maximum Intensity Pixel (MIP), 3D Reconstructed Images, Volume Rendered Images, Surface Shaded Rendering. One of the following dose reduction techniques was utilized for this exam: Automated exposure control, adjustment of the mA and/or kV according to patient size, and use of iterative reconstruction. DLP 1592.35 mGy.cm, CTDI 97.88 mGy COMPARISON: 01/13/2025 CR. FINDINGS: Aorta and Great Vessels: Ascending Aorta: Normal in caliber, no aneurysm, dissection, or significant atherosclerosis. Aortic Arch: Normal in caliber, no aneurysm, dissection, or significant atherosclerosis. Descending Aorta: Normal in caliber, no aneurysm, dissection, or significant atherosclerosis. Pulmonary Arteries: The main pulmonary artery and its branches are patent. No evidence of pulmonary embolism or significant stenosis. Heart: Cardiac Chambers: enlarged in size. Pericardium: No pericardial effusion or thickening. Lungs and Pleura: Lungs are clear without evidence of consolidation, collapse, or focal lesions. No pleural effusion or pleural thickening. Mediastinum: No mediastinal mass or abnormal lymphadenopathy. Normal appearance of the trachea and central bronchi. Hilar Structures: Hilar structures are normal without enlargement. Chest Wall: No mass lesions or abnormalities in the chest wall. Vascular Structures: Superior Vena Cava: Patent without evidence of stenosis or thrombus. Bones and Soft Tissues: A sclerotic lesion is noted in the right humerus, likely representing bony island. No fractures. Soft tissues are unremarkable. Hiatus hernia. The right lobe of the thyroid is not seen. IMPRESSION: 1. No evidence of pulmonary embolism. 2. No acute pulmonary abnormality seen. 3. No significant interval changes. Electronically signed by Bharat Mejia 01-19-2025 02:[address] 01/19/25 00:57 EXAM: CT head/brain wo con CLINICAL HISTORY: confusion, delirium TECHNIQUE: Multiple axial images are obtained from the skull base to the vertex without contrast. CT scan was performed according to ALARA (as low as reasonable achievable). COMPARISON: None. FINDINGS: The brain shows normal morphology, attenuation, and volume for age. No evidence of space occupying lesion, hemorrhage, edema, mass effect, midline shift, extra axial collection, or hydrocephalus is noted. Ventricles, sulci, and basal cisterns are symmetric and normal in size and configuration. The cisse-white matter differentiation is preserved. Visualized paranasal sinuses and mastoid air cells are well aerated. Orbital contents are within normal limits. Bony structures are intact. IMPRESSION: 1. No evidence of acute intracranial abnormality is demonstrated. MRI brain is suggested for better evaluation if clinically indicated. Electronically signed by Archie Faustin 01-19-2025 02:03 AM Discharge Plan Visit Data Chief Complaint: Chest Pain Stated Complaint: CHEST PAIN, SOB, ALTERED MENTAL STATUS ED Provider: Marcela Garcia Discharge Problem: Chest pain, Esophageal spasm, Dyspnea Patient Disposition: Admitted As Inpatient Condition: Fair Discharge Instructions Interventions: ED Discharge Assessment Last Done: 01/19/25 05:50
[2025-01-18] MEDS: PANTOprazole 40 MG/10 ML SYR IV ONE (23:37)
[2025-01-18 23:47] LABS: Hematocrit (blood only) 41.2 % (37.0-47.0); Hemoglobin 14.0 g/dl (12.0-16.0); Immature Granulocytes # (auto) 0.05 K/uL (0.01-0.20); Immature Granulocytes % (auto) 0.3 %; Mean Corpuscular Hemoglobin 29.1 pg (25.0-34.0); Mean Corpuscular Volume 85.7 fL (80.0-100.0); Platelet Count 343 K/uL (130-400); RDW Standard Deviation 38.7 fL (36.4-46.3); Red Blood Count 4.81 M/uL (4.20-5.40); White Blood Count 16.23 K/ul (4.8-10.8)
[2025-01-19 00:06] LABS: Alanine Aminotransferase 12.0 U/L (7-52); Albumin Globulin Ratio 1.1 (0.9-2); Alkaline Phosphatase 51.0 U/L (34-104); Anion Gap 8.0 (3-11); Bilirubin,Total 0.6 mg/dl (0.2-1.0); Blood Urea Nitrogen 8.0 mg/dl (6-23); Calcium 9.1 mg/dl (8.6-10.3); Carbon Dioxide 28.0 mmol/L (21-32); Chloride 104.0 mmol/L (98-107); Creatinine Clr Calc Pharmacy 75.6 ml/min; Globulin 3.9 gm/dl (2.5-4.0); Glucose 81.0 mg/dl (70-99(Fasting)); Lipase 32.0 U/L (11-82); Potassium 3.6 mmol/L (3.5-5.1); Sodium 140.0 mmol/L (136-145); Total Protein 8.2 gm/dl (6.0-8.3)
[2025-01-19 00:35] LABS: Chlamydia pneumoniae PCR Not Detected (NotDetected); Coronavirus 229E PCR Not Detected (NotDetected); Coronavirus CoV-2 (COVID19)PCR Not Detected (NotDetected); Coronavirus HKU1 PCR Not Detected (NotDetected); Coronavirus NL63 PCR Not Detected (NotDetected); Coronavirus OC43PCR Not Detected (NotDetected); Human Metapneumovirus PCR Not Detected (NotDetected); Parainfluenza Virus 1 PCR Not Detected (NotDetected); Parainfluenza Virus 2 PCR Not Detected (NotDetected); Parainfluenza Virus 3 PCR Not Detected (NotDetected); Parainfluenza Virus 4 PCR Not Detected (NotDetected); Respiratory Syncytial VirusPCR Not Detected (NotDetected); Rhinovirus/Enterovirus PCR Not Detected (NotDetected)
[2025-01-19] MEDS: OPTIRAY 320 125ml IV ONE (01:38)
--- NOTE | 2025-01-19 02:03 | CT Scan Report ---
EXAM: CT head/brain wo con CLINICAL HISTORY: confusion, delirium TECHNIQUE: Multiple axial images are obtained from the skull base to the vertex without contrast. CT scan was performed according to ALARA (as low as reasonable achievable). COMPARISON: None. FINDINGS: The brain shows normal morphology, attenuation, and volume for age. No evidence of space occupying lesion, hemorrhage, edema, mass effect, midline shift, extra axial collection, or hydrocephalus is noted. Ventricles, sulci, and basal cisterns are symmetric and normal in size and configuration. The cisse-white matter differentiation is preserved. Visualized paranasal sinuses and mastoid air cells are well aerated. Orbital contents are within normal limits. Bony structures are intact. IMPRESSION: 1. No evidence of acute intracranial abnormality is demonstrated. MRI brain is suggested for better evaluation if clinically indicated. Electronically signed by Archei Faustin 01-19-2025 02:03 AM
--- NOTE | 2025-01-19 02:42 | XRay Report ---
Exam(s): XR CXR 1 VIEW EXAM: XR Chest, 1 View CLINICAL HISTORY: Reason for exam: Chest pain, nonspecific. TECHNIQUE: Frontal view of the chest. COMPARISON: Prior chest x-ray from January 13, 2025. FINDINGS: Lungs: Mild to moderate peribronchial thickening of the central and lower lobe bronchi with increased interstitial opacities in the lower lobes. No consolidation. Pleural space: Unremarkable. No pneumothorax. Heart: Unremarkable. No cardiomegaly. Mediastinum: Unremarkable. Normal mediastinal contour. Bones/joints: Unremarkable. No acute fracture. IMPRESSION: Bronchitis, which may be infectious or inflammatory etiologies. No consolidation or pleural effusion. Electronically signed by: Alesia Cha MD 01/19/25 02:41 AM
--- NOTE | 2025-01-19 02:44 | CT Scan Report ---
EXAM: CT angio chest PE protocol CLINICAL HISTORY: PE, CP, hx esophageal stricture, recent strep. TECHNIQUE: CT angiography of the chest was performed with intravenous contrast with the following protocol: axial images with, reconstructed coronal and sagittal images. Intravenous contrast was administered using automated injection techniques. Bolus tracking was employed to optimize arterial phase imaging. One of these 3D techniques was utilized: Maximum Intensity Pixel (MIP), 3D Reconstructed Images, Volume Rendered Images, Surface Shaded Rendering. One of the following dose reduction techniques was utilized for this exam: Automated exposure control, adjustment of the mA and/or kV according to patient size, and use of iterative reconstruction. DLP 1592.35 mGy.cm, CTDI 97.88 mGy COMPARISON: 01/13/2025 CR. FINDINGS: Aorta and Great Vessels: Ascending Aorta: Normal in caliber, no aneurysm, dissection, or significant atherosclerosis. Aortic Arch: Normal in caliber, no aneurysm, dissection, or significant atherosclerosis. Descending Aorta: Normal in caliber, no aneurysm, dissection, or significant atherosclerosis. Pulmonary Arteries: The main pulmonary artery and its branches are patent. No evidence of pulmonary embolism or significant stenosis. Heart: Cardiac Chambers: enlarged in size. Pericardium: No pericardial effusion or thickening. Lungs and Pleura: Lungs are clear without evidence of consolidation, collapse, or focal lesions. No pleural effusion or pleural thickening. Mediastinum: No mediastinal mass or abnormal lymphadenopathy. Normal appearance of the trachea and central bronchi. Hilar Structures: Hilar structures are normal without enlargement. Chest Wall: No mass lesions or abnormalities in the chest wall. Vascular Structures: Superior Vena Cava: Patent without evidence of stenosis or thrombus. Bones and Soft Tissues: A sclerotic lesion is noted in the right humerus, likely representing bony island. No fractures. Soft tissues are unremarkable. Hiatus hernia. The right lobe of the thyroid is not seen. IMPRESSION: 1. No evidence of pulmonary embolism. 2. No acute pulmonary abnormality seen. 3. No significant interval changes. Electronically signed by Bharat Mejia 01-19-2025 02:44 AM
--- NOTE | 2025-01-19 04:31 | History & Physical Report ---
Date of Service January 19, 2025 Assessment & Plan (1) Esophageal spasm: (2) Hypothyroidism: (3) Diabetes type 2, controlled: Plan 59yo female with history of DM, Hypothyroidism presenting with several weeks of progressive dysphagia and odynophagia. Patient with history of streptococcal infection for which she is completing treatment with penicillin. History of esophageal strictures #Dysphagia/odynophagia - ?esophageal spasm vs return of stricture. Patient concerned because she feels that secretions are pooling in her esophagus and difficult to swllow. -Observation to medical -Pepcid 20mg IV BID -Protonix 40mg IV daily -Patient on Verapamil in the past but did not tolerate - will hold off on CCB for now for possible spasm -LR at 80mL/hr x 1L -GI consultation appreciated -Zofran PRN #Strep infection -Complete PCN VK QID until 01/20/25 #Anxiety - etiology unclear. Possibly secondary to strep infection? Patient denies mental health diagnosis prior to this. She has had adverse reactions to several PRN anxioulytics including Hydroxyzine and Ativan -Magnesium 400mg po daily -Monitor #Hypothyroidism -Continue Synthroid 125mcg po daily #Hypertension -Continue Metoprolol 50mg po qAM #DIabetes - controlled with Ozempic. Patient holding for now -Hold Ozempic History of Present Illness Chief Complaint: dysphagia, odynophagia Primary Care Provider: Libby Quiroz MD Alyson Ferguson is a 59yo female with DM, Hypothyroidism, esophageal strictures dignosed via EGD in March 2024 s/p dilation presenting with progressive dysphagia and odynophagia. Patient developed a strep infection last week and was started on PCN QID. She reports feeling very ill with the strep throat - significant swelling of the glands in her face and neck as well as a rash on her face. She also reports developing significant anxiety. Patient denies having a history of anxiety or toya but she reports since acquiring the strep infection she has been having episodes of anxiety and panic. She reports having difficulty sleeping. Regarding her dysphagia and odynophagia - patient with history of esophageal stricture which was dilated in March 2024. She has had several weeks of mild substernal chest discomfort with eating. She saw GI two days ago and her Protonix was increased from 20mg to 40mg daily and scheduled her for an EGD with possible dilation on 03/01/25. Over the last two days she has had marked increase in painful swallowing. She reports the feeling of a "fist" in her chest that moves up and down with sw allowing. She reports food and liquids getting stuck in her mid-esophagus and coming back up her esophagus. She reports difficulty laying down because she feels as though secretions are pulling in her esophagus and making it difficult to breath. No oral lesions or thrush. In the ER she is afebrile, HD stable Allergies Allergy/AdvReac Type Severity Reaction Status Date / Time adhesive AdvReac Mild Rash Verified 01/16/25 10:42 metformin AdvReac Mild Difficulty Verified 01/16/25 10:42 Breathing peanut butter Allergy Severe Anaphylaxis Uncoded 01/16/25 10:42 Home Medications Medication Instructions Recorded Confirmed Type cholecalciferol (vitamin D3) 50 1,000 unit PO QAM 08/24/23 01/18/25 History mcg (2,000 unit) tablet aspirin 81 mg tablet,delayed 81 mg PO QAM 03/02/24 01/18/25 History release estradiol 1 mg tablet 0.5 mg PO QAM 03/02/24 01/18/25 History levothyroxine 125 mcg tablet 125 mcg PO QAM 03/02/24 01/18/25 History loratadine 10 mg tablet (Claritin) 10 mg PO QAM 03/02/24 01/18/25 History metoprolol succinate 50 mg 50 mg PO QAM 03/02/24 01/18/25 History tablet,extended release 24 hr pantoprazole 40 mg tablet,delayed 40 mg PO QAM #30 tabs 01/16/25 01/18/25 Rx release hydroxyzine pamoate 25 mg capsule 25 mg PO Q8 PRN Anxiety 01/18/25 01/18/25 History lorazepam 1 mg tablet 1 mg PO Q8 PRN Anxiety 01/18/25 01/18/25 History nitroglycerin 0.4 mg sublingual 0.4 mg sublingual UD PRN Chest Pain 01/18/25 01/18/25 History tablet penicillin V potassium 500 mg 500 mg PO Q6 01/18/25 01/18/25 History tablet potassium bicarbonate-citric acid 25 meq PO DAILY 01/18/25 01/18/25 History 25 mEq effervescent tablet (Effer-K) semaglutide 2 mg/dose (8 mg/3 mL) 2 mg subcut WK 01/18/25 01/18/25 History subcutaneous pen injector (Ozempic) sucralfate 1 gram tablet 1 g PO BID 01/18/25 01/18/25 History Past Med/Surg History Problem List Dyspnea (Acute) Esophageal spasm (Acute) Chest pain (Acute) Esophageal stenosis Dysphagia History of esophagogastroduodenoscopy (EGD) (Acute) Chest pain (Acute) GERD (gastroesophageal reflux disease) Colon cancer screening Encounter for pre-operative examination Negative test 04/10/20. Elevated hemoglobin A1c reason for metformin Panic attacks Lumbar radiculopathy PTSD (post-traumatic stress disorder) Grief reaction Supraventricular tachycardia, paroxysmal (Chronic) reason for metoprolol--followed with Dr. 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 History of stroke (1994) 1994--pt states was d/t severe migraine did follow with neurologist but was cleared--not sure what type of stroke - has slight weakness on right side, and slight right facial drooping, sally. with lip Hx of duodenal ulcer (2019) Hx of colonic polyps History of kidney stones History of duodenal ulcer Surgical History History of right breast biopsy benign History of bilateral tubal ligation (1990) History of total hysterectomy with bilateral salpingo-oophorectomy (BSO) (1992) History of colonoscopy with polypectomy (2019) History of esophagogastroduodenoscopy (EGD) History of cholecystectomy (2000) History of surgical procedure on mouth dental implant- broke, now has partial flapper - removable- pt. will have day of procedure Had 2 root canal teeth removed History of partial thyroidectomy (1997) on right side History of tonsillectomy and adenoidectomy Family History Aunt Family history of diabetes mellitus Breast cancer Mother Family history of diabetes mellitus Cardiac disorder Myocardial infarction Hypertension Father Prostate cancer Alcohol abuse Cardiac disorder Kidney stone Kidney disease Hypertension Uncle Family history of diabetes mellitus Grandmother (Maternal) Family history of diabetes mellitus Other No family history of adverse response to anesthesia Denies family history of Ovarian cancer Colorectal cancer Social History Smoking Status: Never smoker Second Hand Exposure: No; Do You Dip or Chew Tobacco: No; Hx Alcohol Use: No Hx Substance Use: No Preferred Language: Frisian Communication Ability: Effective Visual Impairment: No Limitations Hearing Ability: Normal Locomotive Engineer Required: No Beliefs That Will Affect Care: None marital status: Current Living Situation: Spouse Current Living Situation Comment: Lives with current occupational status: employed 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 How many Children do You have: 2 Feels Safe at Home: Yes Childhood Exposure to Second-Hand Smoke: No Diet: regular Dental Care, Regularly: Yes Physical Activity Frequency: Does not Exercise Seatbelt Use: always Sunscreen Use: Yes Assistive Devices: Glasses and Other Review of Systems Review of Systems: All systems reviewed & are unremarkable except as noted in HPI & below Physical Exam Physical Exam: General: patient resting comfortably, NAD, non-toxic in appearance, AA&O x 4 Skin: warm, dry, intact, no rashes or lesions HEENT: NC/AT, PERRL, EOMI, anicteric sclera, conjunctiva without injection, external ear normal to inspection and nontender, nares patent, moist mucus membranes, dentition intact, no oropharyngeal lesions, neck supple, trachea midline, no LAD, no thyromegaly, no JVD Heart: +S1/S2, regular, no m/r/g Lungs: equal air entry bilaterally, no rales/rhonchi/wheezes Abd: +BS, soft, NT/ND, no masses/organomegaly/ascites Ext: warm, 2+ pulses in UE/LE bilaterally, no clubbing/cyanosis or edema Neuro: nonfocal, patient AA&O x 4, speech intact, no facial droop, moving all extremities on command with equal strength 5/5 Results & Data Results & Data Vital Signs (Past 12 Hours) Vital Signs Temp Pulse Resp BP Pulse Ox O2 Del Method O2 Flow Rate 01/19/25 03:33 64 15 140/77 97 Room Air 01/19/25 03:07 64 01/19/25 03:00 65 16 125/63 99 Room Air 01/19/25 02:30 75 14 130/80 97 Room Air 01/19/25 02:06 67 18 140/69 96 Room Air 01/19/25 00:30 73 22 147/94 H 98 Room Air 01/19/25 00:12 77 23 151/91 H 100 Room Air 01/18/25 23:30 70 22 154/93 H 100 Room Air 01/18/25 23:10 78 01/18/25 23:00 76 18 100 Room Air 01/18/25 23:00 100 Room Air 0 01/18/25 23:00 36.4 C L 73 22 132/83 99 Room Air Laboratory Results Laboratory Results WBC 16.23 K/ul (4.8-10.8) H 01/18/25 23:30 RBC 4.81 M/uL (4.20-5.40) 01/18/25 23:30 Hgb 14.0 g/dl (12.0-16.0) 01/18/25 23:30 Hct 41.2 % (37.0-47.0) 01/18/25 23:30 MCV 85.7 fL (80.0-100.0) 01/18/25 23:30 MCH 29.1 pg (25.0-34.0) 01/18/25 23:30 MCHC 34.0 g/dL (32.0-36.0) 01/18/25 23:30 RDW Std Deviation 38.7 fL (36.4-46.3) 01/18/25 23:30 RDW Coeff of Breana 12.5 % (11.5-14.5) 01/18/25 23:30 Plt Count 343 K/uL (130-400) 01/18/25 23:30 MPV 9.7 fL (9.4-12.4) 01/18/25 23:30 Immature Gran % (Auto) 0.3 % 01/18/25 23:30 Neut % (Auto) 70.2 % 01/18/25 23:30 Lymph % (Auto) 22.4 % 01/18/25 23:30 [place] % (Auto) 6.3 % 01/18/25 23:30 Eos % (Auto) 0.4 % 01/18/25 23:30 Baso % (Auto) 0.4 % 01/18/25 23:30 Neut # (Auto) 11.40 K/uL (1.40-6.50) H 01/18/25 23:30 Lymph # (Auto) 3.63 K/uL (1.20-3.40) H 01/18/25 23:30 [place] # (Auto) 1.02 K/uL (0.11-0.59) H 01/18/25 23:30 Eos # (Auto) 0.06 K/uL (0.00-0.50) 01/18/25 23:30 Baso # (Auto) 0.07 K/uL (0.00-0.20) 01/18/25 23:30 Immature Gran # (Auto) 0.05 K/uL (0.01-0.20) 01/18/25 23:30 D-Dimer < 190 ug/L FEU (0-500) 01/18/25 23:30 Sodium 140 mmol/L (136-145) 01/18/25 23:30 Potassium 3.6 mmol/L (3.5-5.1) 01/18/25 23:30 Chloride 104 mmol/L (98-107) 01/18/25 23:30 Carbon Dioxide 28 mmol/L (21-32) 01/18/25 23:30 Anion Gap 8 (3-11) 01/18/25 23:30 BUN 8 mg/dl (6-23) 01/18/25 23: Creatinine 0.83 mg/dl (0.6-1.2) 01/18/25 23:30 Est Cr Clr Drug Dosing 75.6 ml/min 01/18/25 23:30 eGFR 82.17 01/18/25 23:30 BUN/Creatinine Ratio 9.6 (10-20) L 01/18/25 23:30 Glucose 81 mg/dl (70-99(Fasting)) 01/18/25 23:30 Calcium 9.1 mg/dl (8.6-10.3) 01/18/25 23:30 Total Bilirubin 0.6 mg/dl (0.2-1.0) 01/18/25 23:30 AST 18 U/L (13-39) 01/18/25 23:30 ALT 12 U/L (7-52) 01/18/25 23:30 Alkaline Phosphatase 51 U/L (34-104) 01/18/25 23:30 Troponin I High Sens 2.5 pg/ml (0-14) 01/18/25 23: Total Protein 8.2 gm/dl (6.0-8.3) 01/18/25 23:30 Albumin 4.3 gm/dl (3.4-5.0) 01/18/25 23:30 Globulin 3.9 gm/dl (2.5-4.0) 01/18/25 23:30 Albumin/Globulin Ratio 1.1 (0.9-2) 01/18/25 23:30 Lipase 32 U/L (11-82) 01/18/25 23:30 Procalcitonin < 0.02 ng/ml (0-0.5) 01/18/25 23:30 Adenovirus (PCR) Not Detected (NotDetected) 01/18/25 23:31 B. pertussis DNA (PCR) Not Detected (NotDetected) 01/18/25 23:31 B.parapertussis DNA PCR Not Detected (NotDetected) 01/18/25 23:31 C. pneumoniae DNA (PCR) Not Detected (NotDetected) 01/18/25 23:31 Coronavirus OC43 (PCR) Not Detected (NotDetected) 01/18/25 23:31 Coronavirus HKU1 (PCR) Not Detected (NotDetected) 01/18/25 23:31 Coronavirus 229E (PCR) Not Detected (NotDetected) 01/18/25 23:31 SARS-CoV-2 (PCR) Not Detected (NotDetected) 01/18/25 23:31 Coronavirus NL63 (PCR) Not Detected (NotDetected) 01/18/25 23:31 Human Metapneumovir PCR Not Detected (NotDetected) 01/18/25 23:31 Influenza Type A (PCR) Not Detected (NotDetected) 01/18/25 23:31 Influenza Type B (PCR) Not Detected (NotDetected) 01/18/25 23:31 M. pneumoniae (PCR) Not Detected (NotDetected) 01/18/25 23:31 Parainfluenza 1 (PCR) Not Detected (NotDetected) 01/18/25 23:31 Parainfluenza 2 (PCR) Not Detected (NotDetected) 01/18/25 23:31 Parainfluenza 3 (PCR) Not Detected (NotDetected) 01/18/25 23:31 Parainfluenza 4 (PCR) Not Detected (NotDetected) 01/18/25 23:31 RSV (PCR) Not Detected (NotDetected) 01/18/25 23:31 Entero/Rhino (PCR) Not Detected (NotDetected) 01/18/25 23:31 Impressions Chest X-Ray 01/18/25 23:04 Exam(s): XR CXR 1 VIEW EXAM: XR Chest, 1 View CLINICAL HISTORY: Reason for exam: Chest pain, nonspecific. TECHNIQUE: Frontal view of the chest. COMPARISON: Prior chest x-ray from January 13, 2025. FINDINGS: Lungs: Mild to moderate peribronchial thickening of the central and lower lobe bronchi with increased interstitial opacities in the lower lobes. No consolidation. Pleural space: Unremarkable. No pneumothorax. Heart: Unremarkable. No cardiomegaly. Mediastinum: Unremarkable. Normal mediastinal contour. Bones/joints: Unremarkable. No acute fracture. IMPRESSION: Bronchitis, which may be infectious or inflammatory etiologies. No consolidation or pleural effusion. Electronically signed by: Alesia Cha MD 01/19/25 02:41 AM Chest CTA 01/19/25 00:57 EXAM: CT angio chest PE protocol CLINICAL HISTORY: PE, CP, hx esophageal stricture, recent strep. TECHNIQUE: CT angiography of the chest was performed with intravenous contrast with the following protocol: axial images with, reconstructed coronal and sagittal images. Intravenous contrast was administered using automated injection techniques. Bolus tracking was employed to optimize arterial phase imaging. One of these 3D techniques was utilized: Maximum Intensity Pixel (MIP), 3D Reconstructed Images, Volume Rendered Images, Surface Shaded Rendering. One of the following dose reduction techniques was utilized for this exam: Automated exposure control, adjustment of the mA and/or kV according to patient size, and use of iterative reconstruction. DLP 1592.35 mGy.cm, CTDI 97.88 mGy COMPARISON: 01/13/2025 CR. FINDINGS: Aorta and Great Vessels: Ascending Aorta: Normal in caliber, no aneurysm, dissection, or significant atherosclerosis. Aortic Arch: Normal in caliber, no aneurysm, dissection, or significant atherosclerosis. Descending Aorta: Normal in caliber, no aneurysm, dissection, or significant atherosclerosis. Pulmonary Arteries: The main pulmonary artery and its branches are patent. No evidence of pulmonary embolism or significant stenosis. Heart: Cardiac Chambers: enlarged in size. Pericardium: No pericardial effusion or thickening. Lungs and Pleura: Lungs are clear without evidence of consolidation, collapse, or focal lesions. No pleural effusion or pleural thickening. Mediastinum: No mediastinal mass or abnormal lymphadenopathy. Normal appearance of the trachea and central bronchi. Hilar Structures: Hilar structures are normal without enlargement. Chest Wall: No mass lesions or abnormalities in the chest wall. Vascular Structures: Superior Vena Cava: Patent without evidence of stenosis or thrombus. Bones and Soft Tissues: A sclerotic lesion is noted in the right humerus, likely representing bony island. No fractures. Soft tissues are unremarkable. Hiatus hernia. The right lobe of the thyroid is not seen. IMPRESSION: 1. No evidence of pulmonary embolism. 2. No acute pulmonary abnormality seen. 3. No significant interval changes. Electronically signed by Bharat Mejia 01-19-2025 02:[address] 01/19/25 00:57 EXAM: CT head/brain wo con CLINICAL HISTORY: confusion, delirium TECHNIQUE: Multiple axial images are obtained from the skull base to the vertex without contrast. CT scan was performed according to ALARA (as low as reasonable achievable). COMPARISON: None. FINDINGS: The brain shows normal morphology, attenuation, and volume for age. No evidence of space occupying lesion, hemorrhage, edema, mass effect, midline shift, extra axial collection, or hydrocephalus is noted. Ventricles, sulci, and basal cisterns are symmetric and normal in size and configuration. The cisse-white matter differentiation is preserved. Visualized paranasal sinuses and mastoid air cells are well aerated. Orbital contents are within normal limits. Bony structures are intact. IMPRESSION: 1. No evidence of acute intracranial abnormality is demonstrated. MRI brain is suggested for better evaluation if clinically indicated. Electronically signed by Archie Faustin 01-19-2025 02:03 AM PG Care Time/CCT Total # of Minutes Spent Total Time Spent with Patient: Total time spent is greater than 50% in coordination of care (as documented) at patient's floor/unit and/or counseling patient: Coding Level of Care Code 02988 INT INP/OBS CARE 2/55MIN Diagnoses Esophageal spasm K22.4 Postoperative hypothyroidism E89.0 Hypothyroidism type: postoperative Diabetes type 2, controlled E11.9 (2) Hypothyroidism Hypothyroidism type: postoperative Qualified Code(s): E89.0 - Postprocedural hypothyroidism
[2025-01-19] MEDS ORDERED: ACETAMINOPHEN 325 MG TAB PO PRN (06:09)
[2025-01-19] MEDS ORDERED: ONDANSETRON INJ 2 MG/ML 2 ML VIAL IV PRN (06:09)
[2025-01-19 06:24] VITALS: BP 126/83; PULSE 72; RESP 18; TEMP 97.5; O2SAT 100
[2025-01-19] MEDS: LACTATED RINGER'S 1,000 ML IV SCH (06:30)
[2025-01-19] MEDS: LEVOTHYROXINE SODIUM 125 MCG TABLET PO SCH (06:33)
[2025-01-19] MEDS: PENICILLIN V POTASSIUM 500 MG TAB PO SCH (06:35)
[2025-01-19] MEDS: PANTOprazole 40 MG/10 ML SYR IV SCH (07:45)
[2025-01-19] MEDS: FAMOTIDINE 20MG IV PUSH 20 MG/5 ML SYR IV SCH (07:46)
[2025-01-19] MEDS: ASPIRIN 81 MG ECTAB PO SCH (07:46)
[2025-01-19] MEDS: METOPROLOL SUCC 50MG EXT REL TAB PO SCH (07:47)
[2025-01-19] MEDS: MAGNESIUM OXIDE 400 MG TAB PO SCH (07:47)
--- NOTE | 2025-01-19 09:35 | Gastrointestinal Consultation ---
Date of Consultation January 19, 2025 Assessment & Plan (1) Dysphagia: Pleasant woman with dysphagia. She has a history of stricture and underwent esophageal dilatation back in March. She says her dysphagia has continued since then and has gotten worse since she had strep throat. She was placed on Pen VK for her strep throat. She had a food impaction back in early January and is scheduled for endoscopy at the end of February. ER called me last night and I advised to advance her medications and let her go home since she had no food impaction. She was to call her GI to get procedure moved up. I do think perhaps she has developed an esophageal pill ulcer from her stricture and penicillin usage and would advise Carafate liquid to see if that will help with worsening dysphagia. She needs EGD and I advised her we could do it on Tuesday as she had no emergent problems. She is considering going home and calling her GI to move procedure up. If she goes home would send her home on carafate liquid as well as her protonix. History of Present Illness Reason for Consultation: dysphagia Attending Physician: Mary Dominguez MD History of Present Illness 59 year old female who has a history of an esophageal stricture with endoscopy in March. She has had continued dysphagia since then but was always able to clear things up with liquids. In early January she developed strep throat and was put on penicillin. After that she developed pain with swallowing and always felt "a lump in her chest". Shortly after her strep she got a pork chop stuck, presented to ED and it resolved. She followed up with her GI who has her scheduled for EGD on March 01. She came in because "it is worse". She has not had food impaction since her issue in early January. She is able to get liquids and soft foods down. Allergies Allergy/AdvReac Type Severity Reaction Status Date / Time peanut Allergy Severe Anaphylaxis Verified 01/19/25 06:13 (PEANUT BUTTER) adhesive AdvReac Mild Rash Verified 01/16/25 10:42 metformin AdvReac Mild Difficulty Verified 01/16/25 10:42 Breathing Home Medications Medication Instructions Recorded Confirmed Type cholecalciferol (vitamin D3) 50 1,000 unit PO QAM 08/24/23 01/18/25 History mcg (2,000 unit) tablet aspirin 81 mg tablet,delayed 81 mg PO QAM 03/02/24 01/18/25 History release estradiol 1 mg tablet 0.5 mg PO QAM 03/02/24 01/18/25 History levothyroxine 125 mcg tablet 125 mcg PO QAM 03/02/24 01/18/25 History loratadine 10 mg tablet (Claritin) 10 mg PO QAM 03/02/24 01/18/25 History metoprolol succinate 50 mg 50 mg PO QAM 03/02/24 01/18/25 History tablet,extended release 24 hr pantoprazole 40 mg tablet,delayed 40 mg PO QAM #30 tabs 01/16/25 01/18/25 Rx release hydroxyzine pamoate 25 mg capsule 25 mg PO Q8 PRN Anxiety 01/18/25 01/18/25 History lorazepam 1 mg tablet 1 mg PO Q8 PRN Anxiety 01/18/25 01/18/25 History nitroglycerin 0.4 mg sublingual 0.4 mg sublingual UD PRN Chest Pain 01/18/25 01/18/25 History tablet penicillin V potassium 500 mg 500 mg PO Q6 01/18/25 01/18/25 History tablet potassium bicarbonate-citric acid 25 meq PO DAILY 01/18/25 01/18/25 History 25 mEq effervescent tablet (Effer-K) semaglutide 2 mg/dose (8 mg/3 mL) 2 mg subcut WK 01/18/25 01/18/25 History subcutaneous pen injector (Ozempic) sucralfate 1 gram tablet 1 g PO BID 01/18/25 01/18/25 History Patient History Medical History History of 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[employer]), 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, still gets sob with exertion History of colitis Hx of renal calculi passed on own Lumbar radiculopathy Hypertriglyceridemia does not take med Diabetes type 2, controlled Hypothyroidism Paroxysmal SVT (supraventricular tachycardia) (2006) reason for taking metoprolol, no longers sees cardio History of panic attacks better recently PTSD (post-traumatic stress disorder) Rectocele also cystocele, follows urology through [facility] History of stroke (1994) 1994--pt states was d/t severe migraine did follow with neurologist but was cleared--not sure what type of stroke - has slight weakness on right side, and slight right facial drooping, sally. with lip Hx of duodenal ulcer (2019) Hx of colonic polyps History of kidney stones History of duodenal ulcer Surgical History History of right breast biopsy benign History of bilateral tubal ligation (1990) History of total hysterectomy with bilateral salpingo-oophorectomy (BSO) (1992) History of colonoscopy with polypectomy (2019) History of esophagogastroduodenoscopy (EGD) History of cholecystectomy (2000) History of surgical procedure on mouth dental implant- broke, now has partial flapper - removable- pt. will have day of procedure Had 2 root canal teeth removed History of partial thyroidectomy (1997) on right side History of tonsillectomy and adenoidectomy Family History Aunt Family history of diabetes mellitus Breast cancer Mother Family history of diabetes mellitus Cardiac disorder Myocardial infarction Hypertension Father Prostate cancer Alcohol abuse Cardiac disorder Kidney stone Kidney disease Hypertension Uncle Family history of diabetes mellitus Grandmother (Maternal) Family history of diabetes mellitus Other No family history of adverse response to anesthesia Denies family history of Ovarian cancer Colorectal cancer Social History Smoking Status: Never smoker Second Hand Exposure: No; Do You Dip or Chew Tobacco: No; Hx Alcohol Use: No Hx Substance Use: No Preferred Language: Macedonian Communication Ability: Effective Visual Impairment: No Limitations Hearing Ability: Normal Injection Press Operator Required: No Beliefs That Will Affect Care: None marital status: Current Living Situation: Spouse Current Living Situation Comment: Lives with current occupational status: employed 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 @ [employer] How many Children do You have: 2 Feels Safe at Home: Yes Childhood Exposure to Second-Hand Smoke: No Diet: regular Dental Care, Regularly: Yes Physical Activity Frequency: Does not Exercise Seatbelt Use: always Sunscreen Use: Yes Assistive Devices: Glasses Review of Systems Review of Systems: All systems reviewed & are unremarkable except as noted in HPI & below Physical Exam Physical Exam: Pleasant female in no distress Constitutional: WD/WN, vitals as above Neck: trachea midline, no thyromegaly Respiratory: normal respiratory effort, lungs clear to auscultation Cardiovascular: RRR, no murmur, no edema Gastrointestinal (Abdomen): normal bowel sounds, soft, nontender, no hepatosplenomegaly Results & Data Vital Signs (Past 12 Hours) Vital Signs Temp Pulse Pulse Resp BP BP Pulse Ox 01/19/25 06:11 36.4 C L 72 18 126/83 100 01/19/25 05:57 69 17 132/88 98 01/19/25 05:50 36.6 C 01/19/25 05:31 68 15 134/85 100 01/19/25 05:00 63 17 144/89 H 99 01/19/25 03:33 64 15 140/77 97 01/19/25 03:07 64 01/19/25 03:00 65 16 125/63 99 01/19/25 02:30 75 14 130/80 97 01/19/25 02:06 67 18 140/69 96 01/19/25 00:30 73 22 147/94 H 98 01/19/25 00:12 77 23 151/91 H 100 01/18/25 23:30 70 22 154/93 H 100 01/18/25 23:10 78 01/18/25 23:00 76 18 100 01/18/25 23:00 100 01/18/25 23:00 36.4 C L 73 22 132/83 99 O2 Del Method O2 Flow Rate 01/19/25 06:11 Room Air 01/19/25 05:57 Room Air 01/19/25 05:50 01/19/25 05:31 Room Air 01/19/25 05:00 Room Air 01/19/25 03:33 Room Air 01/19/25 03:07 01/19/25 03:00 Room Air 01/19/25 02:30 Room Air 01/19/25 02:06 Room Air 01/19/25 00:30 Room Air 01/19/25 00:12 Room Air 01/18/25 23:30 Room Air 01/18/25 23:10 01/18/25 23:00 Room Air 01/18/25 23:00 Room Air 0 01/18/25 23:00 Room Air Laboratory Results 01/18/25 01/18/25 Range/Units 23:31 23:30 WBC 16.23 H (4.8-10.8) K/ul RBC 4.81 (4.20-5.40) M/uL Hgb 14.0 (12.0-16.0) g/dl Hct 41.2 (37.0-47.0) % MCV 85.7 (80.0-100.0) fL MCH 29.1 (25.0-34.0) pg MCHC 34.0 (32.0-36.0) g/dL RDW Std Deviation 38.7 (36.4-46.3) fL RDW Coeff of Breana 12.5 (11.5-14.5) % Plt Count 343 (130-400) K/uL MPV 9.7 (9.4-12.4) fL Immature Gran % (Auto) 0.3 % Neut % (Auto) 70.2 % Lymph % (Auto) 22.4 % Pine % (Auto) 6.3 % Eos % (Auto) 0.4 % Baso % (Auto) 0.4 % Neut # (Auto) 11.40 H (1.40-6.50) K/uL Lymph # (Auto) 3.63 H (1.20-3.40) K/uL Pine # (Auto) 1.02 H (0.11-0.59) K/uL Eos # (Auto) 0.06 (0.00-0.50) K/uL Baso # (Auto) 0.07 (0.00-0.20) K/uL Immature Gran # (Auto) 0.05 (0.01-0.20) K/uL D-Dimer < 190 (0-500) ug/L FEU Sodium 140 (136-145) mmol/L Potassium 3.6 (3.5-5.1) mmol/L Chloride 104 (98-107) mmol/L Carbon Dioxide 28 (21-32) mmol/L Anion Gap 8 (3-11) BUN 8 (6-23) mg/dl Creatinine 0.83 (0.6-1.2) mg/dl Est Cr Clr Drug Dosing 75.6 ml/min eGFR 82.17 BUN/Creatinine Ratio 9.6 L (10-20) Glucose 81 (70-99(Fasting)) mg/dl Calcium 9.1 (8.6-10.3) mg/dl Total Bilirubin 0.6 (0.2-1.0) mg/dl AST 18 (13-39) U/L ALT 12 (7-52) U/L Alkaline Phosphatase 51 (34-104) U/L Troponin I High Sens 2.5 (0-14) pg/ml Total Protein 8.2 (6.0-8.3) gm/dl Albumin 4.3 (3.4-5.0) gm/dl Globulin 3.9 (2.5-4.0) gm/dl Albumin/Globulin Ratio 1.1 (0.9-2) Lipase 32 (11-82) U/L Procalcitonin < 0.02 (0-0.5) ng/ml Adenovirus (PCR) Not Detected (NotDetected) B. pertussis DNA (PCR) Not Detected (NotDetected) B.parapertussis DNA PCR Not Detected (NotDetected) C. pneumoniae DNA (PCR) Not Detected (NotDetected) Coronavirus OC43 (PCR) Not Detected (NotDetected) Coronavirus HKU1 (PCR) Not Detected (NotDetected) Coronavirus 229E (PCR) Not Detected (NotDetected) SARS-CoV-2 (PCR) Not Detected (NotDetected) Coronavirus NL63 (PCR) Not Detected (NotDetected) Human Metapneumovir PCR Not Detected (NotDetected) Influenza Type A (PCR) Not Detected (NotDetected) Influenza Type B (PCR) Not Detected (NotDetected) M. pneumoniae (PCR) Not Detected (NotDetected) Parainfluenza 1 (PCR) Not Detected (NotDetected) Parainfluenza 2 (PCR) Not Detected (NotDetected) Parainfluenza 3 (PCR) Not Detected (NotDetected) Parainfluenza 4 (PCR) Not Detected (NotDetected) RSV (PCR) Not Detected (NotDetected) Entero/Rhino (PCR) Not Detected (NotDetected) Diagnostic Findings Chest X-Ray 01/18/25 23:04 Exam(s): XR CXR 1 VIEW EXAM: XR Chest, 1 View CLINICAL HISTORY: Reason for exam: Chest pain, nonspecific. TECHNIQUE: Frontal view of the chest. COMPARISON: Prior chest x-ray from January 13, 2025. FINDINGS: Lungs: Mild to moderate peribronchial thickening of the central and lower lobe bronchi with increased interstitial opacities in the lower lobes. No consolidation. Pleural space: Unremarkable. No pneumothorax. Heart: Unremarkable. No cardiomegaly. Mediastinum: Unremarkable. Normal mediastinal contour. Bones/joints: Unremarkable. No acute fracture. IMPRESSION: Bronchitis, which may be infectious or inflammatory etiologies. No consolidation or pleural effusion. Electronically signed by: Alesia Cha MD 01/19/25 02:41 AM Chest CTA 01/19/25 00:57 EXAM: CT angio chest PE protocol CLINICAL HISTORY: PE, CP, hx esophageal stricture, recent strep. TECHNIQUE: CT angiography of the chest was performed with intravenous contrast with the following protocol: axial images with, reconstructed coronal and sagittal images. Intravenous contrast was administered using automated injection techniques. Bolus tracking was employed to optimize arterial phase imaging. One of these 3D techniques was utilized: Maximum Intensity Pixel (MIP), 3D Reconstructed Images, Volume Rendered Images, Surface Shaded Rendering. One of the following dose reduction techniques was utilized for this exam: Automated exposure control, adjustment of the mA and/or kV according to patient size, and use of iterative reconstruction. DLP 1592.35 mGy.cm, CTDI 97.88 mGy COMPARISON: 01/13/2025 CR. FINDINGS: Aorta and Great Vessels: Ascending Aorta: Normal in caliber, no aneurysm, dissection, or significant atherosclerosis. Aortic Arch: Normal in caliber, no aneurysm, dissection, or significant atherosclerosis. Descending Aorta: Normal in caliber, no aneurysm, dissection, or significant atherosclerosis. Pulmonary Arteries: The main pulmonary artery and its branches are patent. No evidence of pulmonary embolism or significant stenosis. Heart: Cardiac Chambers: enlarged in size. Pericardium: No pericardial effusion or thickening. Lungs and Pleura: Lungs are clear without evidence of consolidation, collapse, or focal lesions. No pleural effusion or pleural thickening. Mediastinum: No mediastinal mass or abnormal lymphadenopathy. Normal appearance of the trachea and central bronchi. Hilar Structures: Hilar structures are normal without enlargement. Chest Wall: No mass lesions or abnormalities in the chest wall. Vascular Structures: Superior Vena Cava: Patent without evidence of stenosis or thrombus. Bones and Soft Tissues: A sclerotic lesion is noted in the right humerus, likely representing bony island. No fractures. Soft tissues are unremarkable. Hiatus hernia. The right lobe of the thyroid is not seen. IMPRESSION: 1. No evidence of pulmonary embolism. 2. No acute pulmonary abnormality seen. 3. No significant interval changes. Electronically signed by Bharat Mejia 01-19-2025 02:[address] 01/19/25 00:57 EXAM: CT head/brain wo con CLINICAL HISTORY: confusion, delirium TECHNIQUE: Multiple axial images are obtained from the skull base to the vertex without contrast. CT scan was performed according to ALARA (as low as reasonable achievable). COMPARISON: None. FINDINGS: The brain shows normal morphology, attenuation, and volume for age. No evidence of space occupying lesion, hemorrhage, edema, mass effect, midline shift, extra axial collection, or hydrocephalus is noted. Ventricles, sulci, and basal cisterns are symmetric and normal in size and configuration. The cisse-white matter differentiation is preserved. Visualized paranasal sinuses and mastoid air cells are well aerated. Orbital contents are within normal limits. Bony structures are intact. IMPRESSION: 1. No evidence of acute intracranial abnormality is demonstrated. MRI brain is suggested for better evaluation if clinically indicated. Electronically signed by Archie Faustin 01-19-2025 02:03 AM
[2025-01-19] MEDS: SUCRALFATE 1 GM/10 ML UDC PO SCH (12:25)
[2025-01-19] MEDS: LORATADINE 10 MG TAB PO SCH (12:27)
--- NOTE | 2025-01-19 17:29 | Discharge Summary ---
Discharge Summary Date of Service January 19, 2025 Principal Dx & Hospital Course #1 = Principal Diagnosis (1) Esophageal spasm: (2) Hypothyroidism: (3) Diabetes type 2, controlled: Plan 59yo female with history of DM, Hypothyroidism presenting with several weeks of progressive dysphagia and odynophagia. Patient with history of streptococcal infection for which she is completing treatment with penicillin. History of esophageal strictures Midchest and corresponding upper back pain aggravated by swallowing. CTPA negative for PE, pneumonia, dissection. DDimer low. No evidence of ACS. #Dysphagia/odynophagia - Significant symptoms which worsened a lot after treatment of the strep pharyngitis which has improved. She's concerned because she feels that secretions are pooling in her esophagus and she's regurgitating some fluids and pills. She may have worsening of stricture and/or esophagitis especially pill esophagitis (related to the PCN V) versus spasm - though has been constant pain and not spasmodic in quality. Consulted GI Dr. Moya who had recommended going home and following up with Dr. Landeros versus EGD earliest Tuesday. She wishes to go home this weekend since she has a visiting relative. Will come back in if persistent severe or worsening symptoms. Treating symptomatically as below: "Contact Dr. Moya's office Tuesday morning to try to expedite follow up. We will also contact him. Its probably best to stay on a liquid diet until things improve - like yogurt, pudding, smoothies. And avoid any unnecessary pills. Thyroid, loratadine, potassium, estradiol should be crushable. Metroprolol succinate is not. You probably want to hold the aspirin until GI mucosa can heal and avoid NSAIDS. Stay upright 45-60 minutes after eating/drinking Crush the carafate into a slurry with 15-30 mL of water. You can also increase it to four times a day. A mortar and pestle would be helpful (usually can find in the drugstore) or the back of a spoon in a small dish. This will allow it to coat your esophagus instead of only the stomach. The hospital has liquid carafate, unfortunately its been impossible to get at retail pharmacies which only have tablets Take carafate on an empty stomach and wait at least 30-60 minutes before taking other medications or Maalox You can make GI cocktail with 30 mL of maalox or mylanta mixed with 10 mL of viscous lidocaine - this may help the esophageal pain. You should only use lidocaine for a limited amount of time and low dose because of the risk of cardiac toxicity. If lidocaine is unavailable you can use 12.5-25 mg of liquid (children's) benadryl instead - but it might make you anxious or agitated since it is similar to hydroxyzine. Some ED studies have shown that maalox alone works just as well as maalox + lidocaine. Increase the omeprazole/pantoprazole to twice a day for a week or two. This isn't crushable but you might be able to find 20 mg capsules that you can open into pudding or applesauce. I can see them on [employer] - or - it looks like [employer] might stock capsules of Nexium (esomeprazole) which is equivalent or stronger - same dose for all three of these: 40 mg bid Stop the Pen V tablets and we will change it to liquid amoxicillin for 5 more days for the strep. I agree it looks like you're getting over this" #Strep pharyngitis - versus viral (EBV for example) unknown if positive culture or rapid strep. Much improved symptoms, some persistent erythema on exam but no swelling -stop PCN V because of swallowing difficulty and poss pill esophagitis -replace with liquid amoxicillin and extend 5d #Anxiety - etiology unclear. Possibly secondary to strep infection? Patient denies mental health diagnosis prior to this. She has had adverse reactions to several PRN anxiolytics including Hydroxyzine and Ativan -improving #Hypothyroidism -Continue Synthroid 125mcg po daily -reports recent abnormal TFT and workup for thyroid storm -may have been euthyroid sick if this was during the pharyngitis. Repeat TFTs as outpatient. #Hypertension -Continue Metoprolol 50mg po qAM #Diabetes - controlled with Ozempic. Patient holding for now - Admission HPI Per Admitting Provider Alyson Ferguson is a 59yo female with DM, Hypothyroidism, esophageal strictures dignosed via EGD in March 2024 s/p dilation presenting with progressive dysphagia and odynophagia. Patient developed a strep infection last week and was started on PCN QID. She reports feeling very ill with the strep throat - significant swelling of the glands in her face and neck as well as a rash on her face. She also reports developing significant anxiety. Patient denies having a history of anxiety or toya but she reports since acquiring the strep infection she has been having episodes of anxiety and panic. She reports having difficulty sleeping. Regarding her dysphagia and odynophagia - patient with history of esophageal stricture which was dilated in March 2024. She has had several weeks of mild substernal chest discomfort with eating. She saw GI two days ago and her Protonix was increased from 20mg to 40mg daily and scheduled her for an EGD with possible dilation on 03/01/25. Over the last two days she has had marked increase in painful swallowing. She reports the feeling of a "fist" in her chest that moves up and down with swallowing. She reports food and liquids getting stuck in her mid-esophagus and coming back up her esophagus. She reports difficulty laying down because she feels as though secretions are pulling in her esophagus and making it difficult to breath. No oral lesions or thrush. In the ER she is afebrile, HD stable Discharge Exam AOx4 sitting on EOB Lungs CTAB Heart reg no mrg Pharynx - erythema in peritonsillar area not too extensive, no swelling, no tonsillar exudates, airway widely patent Discharge Plan Discharge Items Patient Disposition: Home - Self-Care Reason For Visit: DYSPHAGIA, ODYNOPHAGIA Discharge Diagnosis: dysphagia and odynophagia Condition on Discharge: Good Activity: Resume your previous activity Non-emergency contact: Primary Care Provider and [employer] Call non-emergency contact if: you have any medication questions and your symptoms worsen Follow-up/Referrals: Gulshan Landeros DO [Physician] - Libby Quiroz MD [Primary Care Provider] - Diet: Other - See Diet Comment Addtl Attending Provider Instructions: Esophageal pain and dysphagia You may have pill esophagitis or esophageal spasm on top of your stricture Contact Dr. Moya's office Tuesday morning to try to expedite follow up. We will also contact him. Its probably best to stay on a liquid diet until things improve - like yogurt, pudding, smoothies. And avoid any unnecessary pills. Thyroid, loratadine, potassium, estradiol should be crushable. Metroprolol succinate is not. You probably want to hold the aspirin until GI mucosa can heal and avoid NSAIDS. Stay upright 45-60 minutes after eating/drinking Crush the carafate into a slurry with 15-30 mL of water. You can also increase it to four times a day. A mortar and pestle would be helpful (usually can find in the drugstore) or the back of a spoon in a small dish. This will allow it to coat your esophagus instead of only the stomach. The hospital has liquid carafate, unfortunately its been impossible to get at retail pharmacies which only have tablets Take carafate on an empty stomach and wait at least 30-60 minutes before taking other medications or Maalox You can make GI cocktail with 30 mL of maalox or mylanta mixed with 10 mL of viscous lidocaine - this may help the esophageal pain. You should only use lidocaine for a limited amount of time and low dose because of the risk of cardiac toxicity. If lidocaine is unavailable you can use 12.5-25 mg of liquid (children's) benadryl instead - but it might make you anxious or agitated since it is similar to hydroxyzine. Some ED studies have shown that maalox alone works just as well as maalox + lidocaine. Increase the omeprazole/pantoprazole to twice a day for a week or two. This isn't crushable but you might be able to find 20 mg capsules that you can open into pudding or applesauce. I can see them on [employer] - or - [facility] Nexium (esomeprazole) which is equivalent or stronger - same dose for all three of these: 40 mg bid Stop the Pen V tablets and we will change it to liquid amoxicillin for 5 more days for the strep. I agree it looks like you're getting over this. Have your doctor recheck your TSH in several weeks when you are better. The recent TSH is probably out of whack because of euthyroid sick syndrome. If you are getting worse or unable to keep down adequate fluids, come back to the ED - we can readmit you and consult GI on Tuesday AM It was a pleasure seeing you in the hospital, Mary Dominguez MD Pending Studies at Discharge: No Stand-Alone Forms: My [facility] [address] travel, Smoking Cessation Medications and DC Order Prescriptions: New amoxicillin 250 mg/5 mL suspension for reconstitution 500 mg PO BID 6 Days Qty: 120 0RF lidocaine HCl [Lidocaine Viscous] 2 % solution 10 ml PO Q8H PRN (Reason: esophageal pain) 3 Days Qty: 100 0RF sucralfate 1 gram tablet 1 g PO Q6H Qty: 56 0RF Rx Instructions: increase to 4x a day for two weeks, then decrease to 2x a day Continued cholecalciferol (vitamin D3) 50 mcg (2,000 unit) tablet 1,000 unit PO QAM pantoprazole 40 mg tablet,delayed release (DR/EC) 40 mg PO QAM Qty: 30 5RF metoprolol succinate 50 mg tablet extended release 24 hr 50 mg PO QAM levothyroxine 125 mcg tablet 125 mcg PO QAM Rx Instructions: TAKE 1 TAB BY MOUTH DAILY EVERY MORNING loratadine [Claritin] 10 mg tablet 10 mg PO QAM Ozempic 2 mg/dose (8 mg/3 mL) pen injector 2 mg SUBCUT WK Effer-K 25 mEq tablet, effervescent 25 meq PO DAILY nitroglycerin 0.4 mg tablet, sublingual 0.4 mg sublingual UD PRN (Reason: Chest Pain) Changed estradiol 1 mg Tablet 1 mg PO QAM Qty: 0 0RF Held aspirin 81 mg tablet,delayed release (DR/EC) 81 mg PO QAM Hold Instructions: Resume on 02/02/25. hold for awhile to let GI mucosa heal Discontinued sucralfate 1 gram tablet 1 g PO BID Rx Instructions: ordered 01/14/25 take x 4 weeks lorazepam 1 mg tablet 1 mg PO Q8 PRN (Reason: Anxiety) penicillin V potassium 500 mg tablet 500 mg PO Q6 Rx Instructions: ordered 01/10/25 take for 10 days hydroxyzine pamoate 25 mg capsule 25 mg PO Q8 PRN (Reason: Anxiety) Rx Instructions: ordered 01/14/25 for 5 days Discharge Orders: Discharge Order (Routine); Ordered 01/19/25 Ordered By: Mary Dominguez Admission Data Admit Date/Time: 01/19/25 04:30 Attending Provider: Mary Dominguez Admit Provider: Jennifer Espinal Primary Care Provider: Libby Quiroz Other Providers: Jennifer Espinal; Mark Moya Jr Other Interventions: Discharge Summary Assessment (RN) Last Done: 01/19/25 12:51 Hospital Stay Data Consultations 01/19/25 03:49 ED Decision to Admit Stat 01/19/25 04:30 Consult Gastroenterology Routine Diagnostic Imagining Performed 01/19/25 00:57 CT angio chest PE protocol Stat CT head/brain wo con Stat Pending Results Patient Have Any Pending Studies at Discharge: No Discharge Instructions Given to Patient (Per Discharging Provider) Esophageal pain and dysphagia You may have pill esophagitis or esophageal spasm on top of your stricture Contact Dr. Moya's office Tuesday to try to expedite follow up. We will also contact him. Its probably best to stay on a liquid diet until things improve - like yogurt, pudding, smoothies. And avoid any unnecessary pills. Thyroid, loratadine, potassium, estradiol should be crushable. Metroprolol succinate is not. You probably want to hold the aspirin until GI mucosa can heal and avoid NSAIDS. Stay upright 45-60 minutes after eating/drinking Crush the carafate into a slurry with 15-30 mL of water. You can also increase it to four times a day. A mortar and pestle would be helpful (usually can find in the drugstore) or the back of a spoon in a small dish. This will allow it to coat your esophagus instead of only the stomach. The hospital has liquid carafate, unfortunately its been impossible to get at retail pharmacies which only have tablets Take carafate on an empty stomach and wait at least 30-60 minutes before taking other medications or Maalox You can make GI cocktail with 30 mL of maalox or mylanta mixed with 10 mL of viscous lidocaine - this may help the esophageal pain. You should only use lidocaine for a limited amount of time and low dose because of the risk of cardiac toxicity. If lidocaine is unavailable you can use 12.5-25 mg of liquid (children's) benadryl instead - but it might make you anxious or agitated since it is similar to hydroxyzine. Some ED studies have shown that maalox alone works just as well as maalox + lidocaine. Increase the omeprazole/pantoprazole to twice a day for a week or two. This isn't crushable but you might be able to find 20 mg capsules that you can open into pudding or applesauce. I can see them on [employer] - or - it looks like [employer] might stock capsules of Nexium (esomeprazole) which is equivalent or stronger - same dose for all three of these: 40 mg bid Stop the Pen V tablets and we will change it to liquid amoxicillin for 5 more days for the strep. I agree it looks like you're getting over this. Have your doctor recheck your TSH in several weeks when you are better. The recent TSH is probably out of whack because of euthyroid sick syndrome. If you are getting worse or unable to keep down adequate fluids, come back to the ED - we can readmit you and consult GI on Tuesday It was a pleasure seeing you in the hospital, Mary Dominguez MD Total Time Total Time Spent Total Time Spent (In Minutes): I personally spent: 40 minutes today on clinical care activities for discharge (not including time spent on admission and H&P) including: reviewing chart notes and vital signs reviewing labs reviewing studies reviewing media consultant outside sales recommendations examining and counseling the patient writing prescriptions, discharge instructions documentation Coding Level of Care Code INP/OBS EV SAME DAY LV 2,70MIN Diagnoses Esophageal spasm K22.4 Postoperative hypothyroidism E89.0 Hypothyroidism type: postoperative Diabetes type 2, controlled E11.9
--- NOTE | 2025-01-21 10:02 | Electrocardiogram Report ---
Test Reason : Blood Pressure : */* mmHG Vent. Rate : 67 BPM Atrial Rate : 67 BPM P-R Int : 130 ms QRS Dur : 76 ms QT Int : 400 ms P-R-T Axes : -23 -12 -11 degrees QTcB Int : 422 ms Normal sinus rhythm Inferior infarct , age undetermined Nonspecific ST and T wave abnormality Abnormal ECG When compared with ECG of 13-Jan-2025 21:55, Inferior infarct is now Present Inverted T waves have replaced nonspecific T wave abnormality in Inferior leads Confirmed by Krishna Mcnamara ([id number]) on 01/21/2025 10:01:45 AM Referred By: REFERRED SELF Confirmed By: Krishna Mcnamara
== END 2025-01-19 13:17 | disposition home or self-care (01) ==
LOC: 3N 22:51 → ED 22:51 → SUATTDRO 01-19 04:30 → 3N 01-19 05:50